=== PATIENT | female | born 1945 | race Caucasian/White ===

== ENCOUNTER 2022-03-24 10:43 | Emergency (ER) | payer MEDICARE, SELFPAY ==
[2022-03-24 11:06] VITALS: BP 144/79; PULSE 74; RESP 18; TEMP 36.6; O2SAT 99
--- NOTE | 2022-03-24 12:05 | ED.URI ---
HPI - URI/Sore Throat General Chief Complaint: Upper Respiratory Infection Stated Complaint: Cough/Sore Throat Time Seen by Provider: 03/24/22 12:05 Source: patient and RN notes reviewed Mode of arrival: ambulatory Limitations: no limitations History of Present Illness HPI Narrative: 76 of female presents concern for dry cough, sore throat, headache. Reports symptoms started Wednesday. Reports she recently trouble and potentially. She reports she took a negative COVID test at home. She reports was negative. She denies taking any nhwi-gax-tuuirex medications for her symptoms. She denies fever, body aches, chills, no sweats MD elicited complaint: cough Related Data Home Medications Medication Instructions Recorded Confirmed levothyroxine 50 mcg tablet 50 mcg DAILY 03/24/22 03/24/22 pravastatin 40 mg tablet 40 mg DAILY 03/24/22 03/24/22 Allergies Allergy/AdvReac Type Severity Reaction Status Date / Time No Known Allergies Allergy Verified 03/24/22 11:13 Review of Systems Review of Systems: CONSTITUTIONAL: Denies malaise, chills, sweats, or fever. EYES: Denies visual changes, redness, or discharge. ENT: Reports mild rhinorrhea, mild sore throat. Denies congestion, sinus pain, otalgia CARDIOVASCULAR: Denies chest pain, palpitations, or edema. RESPIRATORY: Reports cough. Denies dyspnea. GASTROINTESTINAL: Denies abdominal pain, nausea, vomiting, diarrhea SKIN: Denies rash or itching. MUSCULOSKELETAL: Denies myalgia. NEUROLOGIC: Reports headache. All systems reviewed & are unremarkable except as noted in HPI and below PMFSH Comments At time of signature, agree with nursing past medical, surgical, social and family history. There is no relevant family history pertinent to the presenting complaint Exam Narrative: GENERAL: Well-appearing, well-nourished, and in no acute distress. HEAD: Normocephalic EYES: PERRLA, conjunctivae clear ENT: Nares clear, turbinates edematous and erythematous, clear discharge. Mucous membranes moist. TM pearly burrell with sharp light reflex bilaterally; no tragal tenderness. Oropharynx not erythematous without lesions. Tonsils not enlarged and without exudate, no drooling, no hoarseness, no trismus, uvula midline. NECK: Supple. No lymphadenopathy CHEST: Clear to auscultation, breath sounds equal. No wheezing, rhonchi, rales, or stridor. No respiratory distress, speaks in full sentences. HEART: Regular rate and rhythm. No murmur heard. SKIN: Warm, dry, no rash. NEURO: Alert and oriented x3. PSYCH: Normal mood and affect Course Course Emergency Course: Patient is aware of diagnosis, understands and agrees to treatment plan. Anticipatory guidance given. Patient agrees to follow-up as directed and is aware of reasons to seek care at the emergency department. Portions of this record may have been created with voice recognition software Level of Care: Express Care Visit Vital Signs Vital signs: Vital Signs Temperature 97.8 F 03/24/22 11:06 Pulse Rate 74 03/24/22 11:06 Respiratory Rate 18 03/24/22 11:06 Blood Pressure 144/79 H 03/24/22 11:06 Pulse Oximetry 99 03/24/22 11:06 Oxygen Delivery Room Air 03/24/22 11:06 Temperature 97.8 F 03/24/22 11:06 Pulse Rate 74 03/24/22 11:06 Respiratory Rate 18 03/24/22 11:06 Blood Pressure 144/79 H 03/24/22 11:06 Pulse Oximetry 99 03/24/22 11:06 Oxygen Delivery Room Air 03/24/22 11:06 Reviewed. MDM - URI/Sore Throat MDM Narrative Medical decision making narrative: Differential diagnosis considered: Ravi virus, strep pharyngitis, allergic rhinitis, upper respiratory tract infection, sinusitis, rhinosinusitis, nasopharyngitis. viral pharyngitis, otitis media, otitis externa, pneumonia, bronchitis, viral cough syndrome, viral syndrome, and influenza. Exam findings show no acute concerns or changes; patient is non-toxic appearing and is in no distress. Patient is appropriate for outpatient treatment and follow-up
== END 2022-03-24 12:15 | disposition home or self-care (01) ==
PROVIDERS: Emergency Provider Nurse Practitioner; PCP Internal Medicine
DX: J06.9 Acute upper respiratory infection, unspecified (principal)
CPT/HCPCS: 99202; G0463

== ENCOUNTER 2024-11-11 10:02 | Emergency (ER) | payer MEDICARE, SELFPAY ==
--- NOTE | ~2024-11-11 | XR_ITS ---
HISTORY: pain with trauma COMPARISON: None TECHNIQUE: 3 views of the left ankle were performed FINDINGS: No acute displaced fracture or dislocation. Significant anterolateral soft tissue swelling is identified. The ankle mortise is preserved. Bone mineralization is age-appropriate. IMPRESSION: Anterolateral soft tissue swelling without acute displaced fracture. Reviewed, dictated and finalized at location A. IMPRESSION: Anterolateral soft tissue swelling without acute displaced fractur e.
--- OUTSIDE RECORDS SUMMARY | 2024-11-11 10:04 | XMS_ITS | Encounter Summary ---
Author Organization [facility] Address [address] [place] [address] Phone Care Team Providers Care Spreader Operator Name Role Phone Akira Reza MD Primary Care Provider [phone] Reason for Visit * Reason Comments Medication Refill Encounter Details Date Type Department Care Team (Late st Contact Info) Description 12/23/2023 Refill [facility] - Internal Medicine - [place] [address] [facility] [id number] Akira Reza MD [address] [place] [address] Medication Refill Social History Tobacco Use Types Packs/Day Years Used Date Smoking Tobacco: Former Cigarettes 0 05/10/1968 - 05/10/1978 Passive Smoke Exposure: Past Smokeless Tobacco: Never Alcohol Use Standard Drinks/Week Comments Yes 7 (1 standard drink = 0.6 oz pur e alcohol) [facility] Utilities Answer Date Recorded In the past 12 months has [employer], gas, oil, or water company threatened to shut off services in your home? Patient declined 05/17/2023 Social Connection and Isolation Panel Answer Date Recorded In a typical week, how many times do you talk on the phone with family, friends, or neighbors? Patient declined 05/17/2023 How often do you get togethe r with friends or relatives? Patient declined 05/17/2023 How often do you attend jew or cheondoism serv ices? Patient declined 05/17/2023 Do you belong to any clubs o r organizations such as jew groups, unions, fraternal or athletic groups, or school groups? Patient declined 05/17/2023 How often do you attend meet ings of the clubs or organizations you belong to? Patient declined 05/17/2023 Are you , , di vorced, , never , or living with a partner? Patient declined 05/17/2023 AUDIT-C Answer Date Recorded Q1: How often do you have a drink containing alc ohol? Patient declined 05/17/2023 Q2: How many drinks containi ng alcohol do you have on a typical day when you are drinking? Patient declined 05/17/2023 Q3: How often do you have si x or more drinks on one occasion? Patient declined 05/17/2023 Overall Financial Resource Strain (CARDIA) Answe r Date Recorded How hard is it for you to pa y for the very basics like food, housing, medical care, and heating? Patient declined 05/17/2023 PHQ-2 Answer Date Recorded Total Score - Questions 1-9 0 12/2023 [facility] - Occupational Stress Questionnaire Answer Date Recorded Do you feel stress - tense, restless, nervous, or anxious, or unable to sleep at night because your mind is troubled all the time - these days? Patient declined 05/17/2023 Exercise Vital Sign Answer Date Recorde d On average, how many days pe r week do you engage in moderate to strenuous exercise (like a brisk walk)? Patient declined On average, how many minutes do you engage in exercise at this level? Patient declined 05/17/2023 Hunger Vital Sign Answer Date Recorded Within the past 12 months, y ou worried that your food would run out before you got the money to buy more. Patient declined Within the past 12 months, t he food you bought just didn't last and you didn't have money to get more. Patient declined 12/2023 PRAPARE - Transportation Answer Date Re corded In the past 12 months, has l ack of transportation kept you from medical appointments or from getting medications? Patient declined 05/17/2023 In the past 12 months, has l ack of transportation kept you from meetings, work, or from getting things needed for daily living? Patient declined 05/17/2023 Housing Stability Vital Sign Answer Carlos e Recorded In the last 12 months, was t here a time when you were not able to pay the mortgage or rent on time? Patient declined 05/17/19 24 Number of Places Lived in the Last Year Not on f ile 05/17/2023 In the last 12 months, was t here a time when you did not have a steady place to sleep or slept in a penitentiary (including now)? Patient declined 05/17/2023 Sexually Active Control Partners Comments Not Currently Comments No Sex and Gender Information Value Date Recorded Sex Assigned at Not on file Legal Sex Female 7:34 PM CDT Gender Identity Not on file Sexual Orientation Not on file documented as of this encounter Plan of Treatment Upcoming Encounters Date Type Department Care Team (Late st Contact Info) Description 05/15/2025 11:40 AM FEATHER SAWYER Office Visit [facility] - Internal Medicine [facility] [address] [place] [address] Akira Reza MD [address] [place] [address] documented as of this encounter Visit Diagnoses Not on filedocumented in this encounter Additional Health Concerns Assessment Noted Time PHQ-9 Depression Total Score: 0 05/17/19 24 9:14 AM FEATHER SAWYER documented as of this encounter Care Teams Spreader Operator Relationship Specialty Start Date End Date Akira Reza MD [address] [place] [address] PCP - General Internal Medicine 05/09/15 documented as of this encounter
--- OUTSIDE RECORDS SUMMARY | 2024-11-11 10:04 | XMS_ITS | Encounter Summary ---
Author Organization [facility] Address [address] [place] [address] Phone Care Team Providers Care Otr Van Cdl Truck Driver Name Role Phone Akira Reza MD Primary Care Provider Reason for Visit * Reason Comments Medication Refill Encounter Details Date Type Department Care Team (Late st Contact Info) Description 03/12/2021 Refill [facility] - Internal Medicine - [place] [address] [facility] [place] [address] Akira Reza MD [address] [place] [address] Medication Refill Social History Tobacco Use Types Packs/Day Years Used Date Smoking Tobacco: Former Cigarettes 0 05/10/1968 - 05/10/1978 Smokeless Tobacco: Never Alcohol Use Standard Drinks/Week Comments Yes 7 (1 standard drink = 0.6 oz pur e alcohol) PHQ-2 Answer Date Recorded Total Score - Questions 1-9 0 12/2020 Sexually Active Control Partners Comments Not Currently Comments No Sex and Gender Information Value Date Recorded Sex Assigned at Not on file Legal Sex Female 7:34 PM CDT Gender Identity Not on file Sexual Orientation Not on file COVID-19 Exposure Response Date Recorded In the last month, have you been in contact with someone who was confirmed or suspected to have Coronavirus / COVID-19? No / Unsure 03/10/2021 1:40 PM CDT documented as of this encounter Miscellaneous Notes * Telephone Encounter - Manju Grace RN - 03/12/2021 7:52 AM CDT Medication failed the protocol, provider to review and approve the medication order if appropriate. Requested Prescriptions Pending Prescriptions Disp Refills levothyroxine (SYNTHROID) 50 MCG Tablet [Pharmacy Med Name: Levothyroxine Sodium 50 MCG Oral Tablet] 90 Tablet 3 Sig: TAKE 1 TABLET BY MOUTH DAILY Thyroid Hormones Protocol Failed - 03/12/2021 4:44 AM Failed - Normal TSH in past 12 months TSH Date Value Ref Range Status 11/14/2020 5.890 (H) 0.270 - 4.200 mIU/L Final Passed - Visit with relevant provider in past 12 months or upcoming 90 days Recent Visits Date Type Provider Dept 03/10/21 Office Visit Cassy Richard, PAC [facility] [place] 02/13/21 Office Visit Akira Reza MD [facility] 10/30/20 Office Visit Cassy Richard, [facility] [place] 10/15/20 Office Visit Akira Reza MD [facility] [place] 04/16/20 Office Visit Akira Reza MD [facility] Showing recent visits within past 365 days and meeting all other requirements Future Appointments Date Type Provider Dept 04/16/21 Appointment Akira Reza MD [facility] Showing future appointments within next 90 days and meeting all other requirements documented in this encounter Plan of Treatment Upcoming Encounters Date Type Department Care Team (Late st Contact Info) Description 05/15/2025 11:40 AM FLOWER PICKER Office Visit [facility] - Internal Medicine - [place] [address] [place] [phone] Akira Reza MD [address] [place] [address] documented as of this encounter Visit Diagnoses Not on filedocumented in this encounter Additional Health Concerns Assessment Noted Time PHQ-9 Depression Total Score: 0 10/16/19 21 8:00 AM CDT documented as of this encounter Care Teams Otr Van Cdl Truck Driver Relationship Specialty Start Date End Date Akira Reza MD [address] [place] [address] PCP - General Internal Medicine 05/09/15 documented as of this encounter
--- OUTSIDE RECORDS SUMMARY | 2024-11-11 10:04 | XMS_ITS | Continuity of Care Document ---
Author [place] [facility] [place] [address] [facility] [address] [place] [phone] Phone Care Team Providers Care Charger Operator Name Role Phone Maryam Hazel OD Unavailable Unavailable Allergies, Adverse Reactions, Alerts Substance Reaction Status Criticality No Known Allergies Active No Inform ation Medications Medication Instructions Dosage Effective Dates (start - stop) Status Comments latanoprost 0.005 % eye drops INSTILL 1 DROP IN EACH EYE EVERY DAY IN THE EVENING - Active Artificial Tears (PF) drops in a dropperette instill 1 drop by ophthalmic route every day 1 drop - Active Vitamin D3 2,000 unit capsule take 1 tablet by oral route every day 1 tablet - Active multivitamin capsule take 1 capsule by oral route every day - Active Vitamin B-12 1,000 mcg tablet take 1 capsule by oral route every day 1 capsule - Active aspirin 81 mg tablet,delayed release take 1 tablet by oral route every day 81 MG - Active Fish Oil 1,000 mg (120 mg-180 mg) capsule take 1 capsule by oral route every day 1 capsule - Active pravastatin 40 mg tablet take one tablet daily - Active Levoxyl 50 mcg tablet take one tablet daily - Active LATANOPROST 0.005% OPHTH SOLN 2.5ML INSTILL 1 DROP IN EACH EYE EVERY DAY IN THE EVENING - No Longer Active Procedures Procedure Date No Charge Optomap Fundus Photos Visual Field Examination(s) Eye Exam & Treatment SCODI, Posterior Segment No Charge Optomap Fundus Photos 024 Office/outpatient Visit, Est Post-op Follow-up Visit No Charge Optomap Fundus Photos 024 Trabeculoplasty By Laser SX Post-op Follow-up Visit Trabeculoplasty By Laser SX Office/outpatient Visit, Est Visual Field Examination(s) Fundus Photography W/ Report Office/outpatient Visit, Est Refraction Office/outpatient Visit, Est No Charge Optomap Fundus Photos 023 SCODI, Posterior Segment Eye Exam & Treatment Fundus Photography W/ Report Visual Field Examination(s) Office/outpatient Visit, Est Fundus Photography W/ Report Eye Exam & Treatment Visual Field Examination(s) SCODI, Posterior Segment No Charge Optomap Fundus Photos 022 Office/outpatient Visit, Est Fundus Photography W/ Report Eye Exam & Treatment Office/outpatient Visit, Est SCODI, Posterior Segment No Charge Optomap Fundus Photos 020 Office/outpatient Visit, Est Refraction Visual Field Examination(s) Eye Exam & Treatment Visual Field Examination(s) No Charge Optomap Fundus Photos 019 SCODI, Posterior Segment Office/outpatient Visit, Est Eye Exam & Treatment Visual Field Examination(s) Office/outpatient Visit, Est Office/outpatient Visit, Est No Charge Refraction Post-op Follow-up Visit No Charge Refraction Post-op Follow-up Visit After Cataract Laser Surgery After Cataract Laser Surgery No Charge Refraction SCODI, Posterior Segment Eye Exam & Treatment Visual Field Examination(s) Office/outpatient Visit, Est Office/outpatient Visit, Est Post-op Follow-up Visit Post-op Follow-up Visit No Charge Refraction Post-op Follow-up Visit Post-op Follow-up Visit Remove Cataract, Insert Lens Cyclophotocoag,endoscopic Post-op Follow-up Visit No Charge Refraction Post-op Follow-up Visit Post-op Follow-up Visit Remove Cataract, Insert Lens Cyclophotocoag,endoscopic No Charge Refraction Fundus Photography W/ Report Office/outpatient Visit, Est IOLMaster IOLMaster No Charge Refraction Visual Field Examination(s) Office/outpatient Visit, Est Office/outpatient Visit, Est SCODI, Posterior Segment Office/outpatient Visit, Est Visual Field Examination(s) Office/outpatient Visit, Est Optic Nerve Head Eval IPO Reduced 15% Office/outpatient Visit, Est Optic Nerve Head Eval IPO Reduced 15% Visual Field Examination(s) Eye Exam & Treatment Optic Nerve Head Eval IPO Reduced 15% Office/outpatient Visit, Est SCODI, Posterior Segment Office/outpatient Visit, Est Visual Field Examination(s) Office/outpatient Visit, Est Office/outpatient Visit, Est SCODI, Posterior Segment Office/outpatient Visit, Est Office/outpatient Visit, Est Visual Field Examination(s) Office/outpatient Visit, New Special Eye Evaluation Fundus Photography W/ Report Advance Directives Directive Yes / No Effective Date File Name Other Directive No N/A N/A WARNING:The information contained in this section is historical and is provided for information only and does not constitute a legal document or any assurance that the information is still accurate. Please verify the information with the phoenix of the legal document before using it for clinical purposes. Encounters Encounter Description Practice Location Reason(s) For Visit Diagnoses Date Provider Providers Copied on Encounter [facility] [employer] [facility], [address], [place], [place], [id number], tel:[phone] SEC [place] Professional dilated exam (chief complaint) Primary open-angle glaucoma, bilateral, moderate stagePresenc e of intraocular lensDry eye syndrome of bilateral lacrimal glands 5 Yasemin OD Maryam. [id number], [address], [place], [place], [address], [place]. tel:[phone] Referring Provider: Abhinav Brewer, [facility], [place], [address]. tel:[phone] [facility] [employer] [facility], [address], [place], [place], [address], [place] tel:[phone] [place] No Information 4 Yasemin OD Maryam. [id number], [address], [place], [place], [address], [place]. tel:[phone] Office/outpa tient Visit, Est [facility], [address], [place], [place], [address], tel:[phone] SEC Harpreet [place] Professional glaucoma, pressure check (chief complaint) Primary open-angle glaucoma, bilateral, moderate stagePresenc e of intraocular lensDry eye syndrome of bilateral lacrimal glands 4 Yasemin OD Maryam. [facility][note 2] [employer], [address], [place], [place], [address], [place]. tel:[phone] Referring Provider: Abhinav Brewer, [address] [employer] [facility], [place], [address]. tel:[phone] [employer] [facility], [facility], [facility][note 2] [facility] [address], [place], [place], [address], [place] [phone] SEC Harpreet CASTELLANOS Professional glaucoma, pressure check (chief complaint) Postoperativ e visit 4 Salvador OD Carrie. [address] [place], [place] [address] [facility], [address], [place], [place], [address], [place]. tel:[phone] Referring Provider: Abhinav Brewer, [address] [employer] [facility], [place], [address]. tel:[phone] [employer] [facility], [facility][note 2] [employer] [address], [place], [place], [address], [place] tel:[phone] SEC [place] Professional Laser procedure (chief complaint) Primary open-angle glaucoma, bilateral, moderate stage 4 Adrianne Walsh. [facility][note 2] [employer], [address], [place], [place], [address], [place]. tel:[phone] Referring Provider: Abhinav Brewer, [address] [employer] [facility], [place], [address]. tel:[phone] [employer] [facility], [facility][note 2] [employer] [address], [place], [place], [address], [place] tel:[phone] SEC Harpreet CASTELLANOS Professional 3-4 day IOP Check (chief complaint) Surgery follow-up examination 4 Yasemin OD Maryam. [facility][note 2] [employer], [address], [place], [place], [address], [place]. tel:[phone] Referring Provider: Abhinav Brewer, [address] [facility], [place], [address]. tel:[phone] Office/outpa tient Visit, [facility], [address] [place] [address] [address], [place], [place], [address], [place] tel:[phone] SEC Harprete CASTELLANOS Professional Pt here for SLT evaluation to help control IOP (chief complaint) Primary open-angle glaucoma, right eye, moderate stagePrimary open-angle glaucoma, unspecified eye, moderate stage Apr-3 0-202 4 Adrianne Nico. [address] [place] [address], [address], [place], [place], [address], [place]. tel:[phone] Referring Provider: Abhinav Brewer, [address] [facility], [place], [address]. tel:[phone] Office/outpa tient Visit, [facility], [address] [place] [address] [address], [place], [place], [address], [place] tel:[phone] SEC Harpreet CASTELLANOS Professional 6 MO IOP Check (chief complaint) Primary open-angle glaucoma, bilateral, moderate stage Mar-2 2-202 4 Yasemin OD Maryam. [address] [place] [address], [address], [place], [place], [address], [place]. tel:[phone] Referring Provider: Abhinav Brewer, [address] [facility], [place], [address]. tel:[phone] Office/outpa tient Visit, [facility], [address] [place] [address] [address], [place], [place], [address], [place] tel:[phone] SEC Harpreet CASTELLANOS Professional 1 Mo IOP Check (chief complaint) Primary open-angle glaucoma, bilateral, moderate stagePresenc e of intraocular lens Sep-0 6-202 3 Yasemin OD Maryam. [address] [place] [address], [address], [place], [place], [address], [place]. tel:[phone] Referring Provider: Abhinav Brewer, [address] [facility], [place], [address]. tel:[phone] [facility], [address] [facility], [address], [place], [place], [address], [place] tel:[phone] SEC [place] Professional Complete Exam (chief complaint) Primary open-angle glaucoma, bilateral, moderate stagePresenc e of intraocular lens 3 Yasemin OD Maryam. [address] [facility], [address], [place], [place], [address], [place]. tel:[phone] Referring Provider: Abhinav Brewer, [address] [facility], [place], [address]. tel:[phone] Office/outpa tient Visit, [facility], [address] [place] [address] [address], [place], [place], [address], [place] tel:[phone] [place] Professional glaucoma, pressure check (chief complaint) Primary open-angle glaucoma, bilateral, mild stagePresenc e of intraocular lensDry eye syndrome of bilateral lacrimal glands 3 Juan Manuel Benítez. [address] [employer], [address] [place], [address], [place]. tel:[phone] Referring Provider: Abhinav Brewer, [address] [facility], [place], [address]. tel:[phone] [facility], [address] [place] [address] [address], [place], [place], [address], [place] tel:[phone] SEC [place] Professional Complete Exam (chief complaint) Primary open-angle glaucoma, bilateral, mild stagePresenc e of intraocular lensDrusen (degenerativ e) of macula, left eye 2 Juan Manuel Benítez. [address] [facility], [address], [place], [place], [address], [place]. tel:[phone] Referring Provider: Abhinav Brewer, [address] [facility], [place], [address]. tel:[phone] Office/outpa tient Visit, [facility], [address] [place] [address] [address], [place], [place], [address], [place] tel:[phone] [place] Professional glaucoma, pressure check (chief complaint) Primary open-angle glaucoma, bilateral, mild stage 0- 2 Zambrano Jeyson. [address], [address], [place], [place], [address], [place]. tel:[phone] Referring Provider: Abhinav Brewer, [address] [facility], [place], [address]. tel:[phone] [place] [address], [address] [place] [address] [address], [place], [place], [address], [place] tel:[phone] SEC [place] Professional 3 month Complete (chief complaint) Primary open-angle glaucoma, bilateral, mild stagePresenc e of intraocular lensVitreous degeneration , right eye 1 Juan Manuel Benítez. [address], [address], [place], [place], [address], [place]. tel:[phone] Referring Provider: Abhinav Brewer, [address] [facility], [place], [address]. tel:[phone] Office/outpa tient Visit, [facility], [address] [place] [address] [address], [place], [place], [address], [place] tel:[phone] [place] Professional Red eye (chief complaint) Primary open-angle glaucoma, bilateral, mild stageSubconj unctival hemorrhage of left eye 1 Zambrano Jeyson. [address], [address], [place], [place], [address], [place]. tel:[phone] Referring Provider: Abhinav Brewer, [address] [facility], [place], [address]. tel:[phone] Office/outpa tient Visit, [facility], [address] [place] [address] [address], [place], [place], [address], [place] tel:[phone] SEC [facility] Professional 6 month IOP check (chief complaint) Primary open-angle glaucoma, bilateral, mild stage Bhupinder-3 0-202 0 Juan Manuel Benítez. [address] [facility], [address], [place], [place], [address], [place]. tel:[phone] Referring Provider: Abhinav Brewer, [address] [facility], [place], [address]. tel:[phone] [facility], [address] [place] [address] [address], [place], [place], [address], [place] tel:[phone] SEC [facility] Professional 6 mo Complete exam (chief complaint) Presence of intraocular lensPunctate keratitis, bilateralPri tong open-angle glaucoma, bilateral, mild stage Dec-1 3-201 9 Juan Manuel Benítez. [address] [facility], [address], [place], [place], [address], [place]. tel:[phone] Referring Provider: Abhinav Brewer, [address] [facility], [place], [address]. tel:[phone] Office/outpa tient Visit, [facility], [address] [place] [address] [address], [place], [place], [address], [place] tel:[phone] SEC [facility] Professional 6 mo IOP check (chief complaint) Primary open-angle glaucoma, bilateral, mild stage Bhupinder-0 7-201 9 Juan Manuel Benítez. [address] [facility], [address], [place], [place], [address], [place]. tel:[phone] Referring Provider: Abhinav Brewer, [address] [facility], [place], [address]. tel:[phone] [facility], [address] [place] [address] [address], [place], [place], [address], [place] [phone] SEC [facility] Professional No Information 9 Juan Manuel Benítez. [address] [facility], [address], [place], [place], [address], [place]. tel:[phone] [facility], [address] [place] [address] [address], [place], [place], [address], [place] [phone] SEC [facility] Professional Complete Exam (chief complaint) Primary open-angle glaucoma, bilateral, moderate stagePunctat e keratitis, bilateralPre sence of intraocular lens Apr- 8 Juan Manuel Benítez. [address] [facility], [address] [place], [place], [address], [place]. tel:[phone] Referring Provider: Abhinav Brewer, [address] [place], [address]. tel:[phone] Office/outpa tient Visit, [facility], [address] [place] [address] [address], [place], [place], [address], [place] tel:[phone] SEC [facility] Professional glaucoma, pressure check (chief complaint) Primary open-angle glaucoma, bilateral, moderate stage 8 Juan Manuel Benítez. [address] [facility], [address], [place], [place], [address], [place]. tel:[phone] Referring Provider: Abhinav Brewer, [address] [place], [address]. tel:[phone] Office/outpa tient Visit, [facility], [address] [place] [address] [address], [place], [place], [address], [place] [phone] SEC [facility] Professional Floating dark spot (chief complaint) Other vitreous opacities, right eyePresence of intraocular lens 7 Maria De Jesus Arora. [address] [facility], [address], [place], [place], [address], [place]. tel:[phone] Referring Provider: Abhinav Brewer, [address] [facility], [place], [address]. tel:[phone] [facility], [address], [place], [place], [address], [place] tel:[phone] SEC Harp[place] CASTELLANOS Professional 2 wk YAG PC PO (chief complaint) Encntr for f/u exam aft trtmt for cond oth than malig neoplm 7 Juan Manuel Benítez. [address] [facility], [facility] A, [place], [place], [address], [place]. tel:[phone] Referring Provider: Abhinav Brewer, [address] [facility], [place], [address]. tel:[phone] [facility], [address], [place], [place], [address], [place] tel:[phone] SEC Har[place]reet CASTELLANOS Professional Laser procedure (chief complaint) Encntr for f/u exam aft trtmt for cond oth than malig neoplmOther secondary cataract, right eye 7 Juan Manuel Benítez. [address] [facility], [facility] A, [place], [place], [address], [place]. tel:[phone] Referring Provider: Abhinav Brewer, [address] [facility], [place], [address]. tel:[phone] [facility], [address], [place], [place], [address], [place] tel:[phone] SEC Harpreet CASTELLANOS Professional 6 month IOP check (chief complaint) Primary open-angle glaucoma, left eye, moderate stagePrimary open-angle glaucoma, right eye, moderate stageAfter-c ataract with vision obscured of both eyesPresence of intraocular lens Oct-3 7 Juan Manuel Benítez. [address], [address], [place], [place], [address], [place]. tel:[phone] Referring Provider: Abhinav Brewer, [address] [facility], [place], [address]. tel:[phone] Office/outpa tient Visit, [facility], [address] [place] [address] [address], [place], [place], [address], [place] tel:[phone] SEC Harpreet CASTELLANOS Professional Complete Exam (chief complaint) Primary open-angle glaucoma, right eye, moderate stagePrimary open-angle glaucoma, left eye, moderate stagePresenc e of intraocular lens Apr-2 7 Wankum James. [address], [address], [place], [place], [address], [place]. tel:[phone] Referring Provider: Abhinav Brewer, [address] [facility], [place], [address]. tel:[phone] [facility], [address] [place] [address] [address], [place], [place], [address], [place] tel:[phone] SEC Harpreet CASTELLANOS Professional No Information Apr-0 7 Wankum James. [address], [address], [place], [place], [address], [place]. tel:[phone] Office/outpa tient Visit, [facility], [address], [place], [place], [address], [place] tel:[phone] SEC Harpreet CASTELLANOS Professional 3 month IOP check OU (chief complaint) No Information Oct-2 6 Wankum James. [address], [address] [place], [place], [address], [place]. tel:[phone] Referring Provider: Abhinav Brewer, [address] [facility] [place], [address]. tel:[phone] [facility], [address], [place], [place], [address], [place] tel:[phone] SEC Harpreet CASTELLANOS Professional 2 week IOP PO IOL w/ ECP OD (chief complaint) No Information 6 Juan Manuel Benítez. [address] [employer], [address], [place], [place], [address], [place]. tel:[phone] Referring Provider: Abhinav Brewer, [address] [facility], [place], [address]. tel:[phone] [facility], [address] [place] [address] [address], [place], [place], [address], [place] [phone] SEC Harpreet CASTELLANOS Professional 1 week IOP check OD (chief complaint) No Information 6 Juan Manuel Benítez. [address] [employer], [address] [place], [place], [address], [place]. tel:[phone] Referring Provider: Abhinav Brewer, [address] [facility], [place], [address]. tel:[phone] [facility], [address] [place] [address] [address], [place], [place], [address], [place] [phone] SEC Harpreet CASTELLANOS Professional 2 week post op (chief complaint) No Information 6 Juan Manuel Benítez. [address] [employer], [address], [place], [place], [address], [place]. tel:[phone] Referring Provider: Abhinav Brewer, [address] [facility], [place], [address]. tel:[phone] [facility], [address] [place] [address] [address], [place], [place], [address], [place] tel:[phone] [place] Professional 1 day post op (chief complaint) No Information Bhupinder-0 1-201 6 Gio Ramirez. [address] [facility], [address], [place], [place], [address], [place]. tel:[phone] Referring Provider: Abhinav Brewer, [address] [facility], [place], [address]. tel:[phone] [facility], [address] [place] [address] [address], [place], [place], [address], [place] tel:[phone] [facility] No Information - 6 Adrianne Walsh. [address] [facility], [address], [address], [place], [place], [address], [place]. tel:[phone] Referring Provider: Abhinav Brewer, [address] [facility], [place], [address]. tel:[phone] [facility], [address], [place], [place], [address], [place] tel:[phone] SEC Harpreet CASTELLANOS Professional post op with IOP check (chief complaint) No Information - 6 Juan Manuel Benítez. [address] [facility], [address], [place], [place], [address], [place]. tel:[phone] Referring Provider: Abhinav Brewer, [address] [facility], [place], [address]. tel:[phone] [facility], [address], [place], [place], [address], [place] tel:[phone] SEC Harpreet CASTELLANOS Professional F/u exam, postop (chief complaint) No Information September-0 6-201 6 Juan Manuel Benítez. [address] [facility], [address], [place], [place], [address], [place]. tel:[phone] Referring Provider: Abhinav Brewer, [address] [facility], [place], [address]. tel:[phone] [facility], [address] [place] [address] [address], [place], [place], [address], [place] tel:[phone] SEC Harpreet CASTELLANOS Professional F/u exam, postop (chief complaint) No Information 6 Juan Manuel Benítez. [address] [facility], [address], [place], [place], [address], [place]. tel:[phone] Referring Provider: Abhinav Brewer, [address] [email or web address] [facility] Center, [place], [address]. tel:[phone] [facility], [address] [place] [address] [address], [place], [place], [id number], [place] tel:[phone] [facility] No Information 6 Adrianne Walsh. [address] [place] [address] [employer], [address], [place], [place], [id number], [place]. tel:[phone] Referring Provider: Abhinav Brewer, [address] [place] [facility] [email or web address] [facility], [place], [address]. tel:[phone] Office/outpa tient Visit, [facility], [address] [place] [address] [address], [place], [place], [id number], [place] tel:[phone] SEC Harpreet CASTELLANOS Professional cataract evaluation (chief complaint) No Information 6 Adrianne Walsh. [facility] [place][note 2] [address] [employer], [address], [place], [place], [id number], [place]. tel:[phone] Referring Provider: Abhinav Brewer, [address] [place] [facility], [place], [address]. tel:[phone] Office/outpa tient Visit, [facility], [address] [place] [address] [address], [place], [place], [address], [place] tel:[phone] SEC Harpreet CASTELLANOS Professional Glaucoma (chief complaint) No Information - 5 Wankum James. [address], [address], [id number], [place]. tel:[phone] Referring Provider: Abhinav Brewer, [address] [facility], [place], [address]. tel:[phone] Office/outpa tient Visit, [facility], [address] [place] [address] [address], [place], [place], [address], [place] tel:[phone] [facility] Professional 6 month IOP check (chief complaint) No Information - 5 Wankum James. [address], [place], [place], [address], [place]. tel:[phone] Referring Provider: Abhinav Brewer, [address] [facility], [place], [address]. tel:[phone] Office/outpa tient Visit, [facility], [address] [place] [address] [address], [place], [place], [id number], [place] tel:[phone] SEC [facility] Professional Glaucoma, pressure check (chief complaint) No Information 3- 4 Wankum James. [address], [address] [place], [address], [place]. tel:[phone] Referring Provider: Abhinav Brewer, [address] [facility], [place], [address]. tel:[phone] Office/outpa tient Visit, [facility], [address] [address], [place], [place], [id number], [place] tel:[phone] [facility] Professional 6 MO IOP CHECK / DFE / OCT (chief complaint) No Information Sep-0 4-201 4 Wankum James. [address], [address] [place], [address], [place]. tel:[phone] Referring Provider: Abhinav Brewer, [address] [facility], [place], [address]. tel:[phone] Office/outpa tient Visit, [facility], [address] [address], [place], [place], [address], [place] tel:[phone] [facility] Professional No Information 4 Wankum James. [address] [facility], [address], [address], [place]. tel:[phone] Referring Provider: Abhinav Brewer, [address] [facility], [place], [address]. tel:[phone] [facility], [address] [facility], [address], [place], [place], [address], [place] tel:[phone] SEC [facility] Professional No Information 3 Wankum James. [address] [facility], [address], [address], [place]. tel:[phone] Referring Provider: Abhinav Brewer, [address] [facility], [place], [address]. tel:[phone] Office/outpa tient Visit, [facility], [address] [place] [address] [address], [place], [place], [address], [place] tel:[phone] [facility] Professional No Information 2 Wankum James. [address] [facility], [address] [place], [address], [place]. tel:[phone] Referring Provider: Abhinav Brewer, [address] [facility], [place], [address]. tel:[phone] Office/outpa tient Visit, [facility], [address] [place] [address] [address], [place], [place], [address], [place] tel:[phone] SEC [facility] Professional No Information 2 Wankum James. [address] [facility], [address] [place], [address], [place]. tel:[phone] Referring Provider: Abhinav Brewer, [address] [facility], [place], [address]. tel:[phone] Office/outpa tient Visit, [facility], [address] [address], [place], [place], [address], [place] tel:[phone] [facility] Professional No Information 2 Wankum James. [address] [facility], [facility] [place], [address], [place]. tel:[phone] Referring Provider: Abhniav Brewer, [address] [facility], [place], [address]. tel:[phone] Office/outpa tient Visit, [facility], [address] [address], [place], [place], [address], [place] [phone] [facility] Professional No Information 1 Wankum James. [address] [facility], [facility] [place], [address], [place]. tel:[phone] Referring Provider: Abhinav Brewer, [address] [facility], [place], [address]. tel:[phone] [facility], [address] [address], [place], [place], [address], [place] tel:[phone] [facility] Professional No Information Sep-0 1 Wankum James. [address] [facility], [facility] [place], [address], [place]. tel:[phone] Referring Provider: Abhinav Brewer, [address] [facility], [place], [address]. tel:[phone] Office/outpa tient Visit, [facility], [address] [address], [place], [place], [address], [place] tel:[phone] [facility] Professional No Information 1 Wankum James. [address], [address] [place], [address], [place]. tel:[phone] Referring Provider: Abhinav Brewer, [address] [facility], [place], [address]. tel:[phone] Office/outpa tient Visit, [facility], [address] [address], [place], [place], [address], [place] tel:[phone] [facility] Professional No Information 1 Wankum James. [address], [address] [place], [address], [place]. tel:[phone] Referring Provider: Abhinav Brewer, [address] [facility], [place], [address]. tel:[phone] Office/outpa tient Visit, [facility], [address], [place], [place], [address], [place] tel:[phone] [facility] Professional No Information 1 Wankum James. [address], [address] [place], [address], [place]. tel:[phone] Referring Provider: Abhinav Brewer, [address] [facility], [place], [address]. tel:[phone] Family History Family Member Type Diagnosis Age At Onset Mother Problem (finding) diabetes melli tus in first degree relative Payers Payer name Insurance type Covered constitution party ID Authoriza tion(alma [employer] Md[employer] Gold Adv Prime CI [id number] Social History Type Description Quantity Date Captured Comments Alcohol Use Details 2 drinks daily Caffeine Use Details No Tobacco Use Status Ex-cigarette smoker 025 Smoking Status Former smoker Smoking Tobacco Use Details Cigarette: Age Stopped: 32 Cigarette: No Details Available Sex Female Chief Complaint And Reason For Visit From encounter dated '10/05/2024 13:00'. dilated exam (chief complaint). Description: The 78 year old patient presents for evaluation of dilated exam in the right eye and left eye. H/o POAG OU and PCIOL s/p YAG PC OU. Pt compliant with Latanoprost qhs OU and AFTs PRN OU. Pt states vision is stable since last visit. Denies pain/pressure. Denies flashes/intermittent stable floaters. Pt defers refraction, doing well with glasses. Reason For Referral Reason For Referral No Information Plan Of Treatment Date Type Action Status Goal Tobacco cessation counseling completed Goal Tobacco cessation counseling completed Goal Tobacco cessation counseling completed Goal Tobacco cessation counseling completed Goal Tobacco cessation counseling completed Goal Tobacco cessation counseling completed Goal Tobacco cessation counseling completed Goal Tobacco cessation counseling completed Appointment Roya Villarreal BOOKED Patient Education Dry Eyes: Care Instruct ions completed Patient Education Open-Angle Glaucoma: Ca re Instructions completed Patient Education Open-Angle Glaucoma: Ca re Instructions completed Patient Education Open-Angle Glaucoma: Ca re Instructions completed Patient Education Open-Angle Glaucoma: Ca re Instructions completed Patient Education Open-Angle Glaucoma: Ca re Instructions completed Patient Education Open-Angle Glaucoma: Ca re Instructions completed Patient Education Open-Angle Glaucoma: Ca re Instructions completed Patient Education Open-Angle Glaucoma: Ca re Instructions completed Patient Education Subconjunctival Hemorrh age: Care Inst~ completed Patient Education Open-Angle Glaucoma: Ca re Instructions completed Patient Education Open-Angle Glaucoma: Ca re Instructions completed Patient Education Open-Angle Glaucoma: Ca re Instructions completed Patient Education Open-Angle Glaucoma: Ca re Instructions completed History Of Present Illness Encounter Date Complaint History Of Prese nt Illness dilated exam The 78 year old patient presents for evaluation of dilated exam in the right eye and left eye. H/o POAG OU and PCIOL s/p YAG PC OU. Pt compliant with Latanoprost qhs OU and AFTs PRN OU. Pt states vision is stable since last visit. Denies pain/pressure. Denies flashes/intermittent stable floaters. Pt defers refraction, doing well with glasses. glaucoma, pressure check The 78 year old patient presents for a 3 month POAG ou IOP check. S/p SLT OD. Patient is using drop as directed. Patient denies any changes in vision ou. Patient states her eyes feel dry. glaucoma, pressure check The 78 year old patient presents for a 1 week IOP check S/p SLT OS. Patient denies and pain or discomfort. Patient used Latanoprost last night ou. Laser procedure The 78 year old patient presents for a SLT OS per Dr. Hazel. S/p SLT OD in August. Patient stopped her Latanoprost OS 3 days ago. Patient is using it in OD. 3-4 day IOP Check The 77 year ol d patient presents for evaluation of 3-4 day IOP Check in the right eye and left eye. Pt had SLT OD on 09/07/2023. Pt states things seem to be doing really well OD and has not had any complaints. Pt here for SLT eval uation to help control IOP The 77 year old patient presents for evaluation of Pt here for SLT evaluation to help control IOP in the right eye and left eye. Pt states she was not told to stop the Latanoprost drops. 6 MO IOP Check The 77 year old patient presents for evaluation of 6 MO IOP Check in the right eye and left eye. Pt states no changes in vision since last visit. Pt take Latanoprost QHS OU. 1 Mo IOP Check The 77 year old patient presents for evaluation of 1 Mo IOP Check in the right eye and left eye. Pt states vision has been the same since last visit. Pt is taking latanoprost QHS OU. Pt is also taking Refresh at lease BID or more if needed. Complete Exam The 76 year old patient presents for evaluation of Complete Exam in the right eye and left eye. Monitoring POAG. Pt states sees black floaters randomly throughout the day in OU. Pt states using Artificial tears at least TID. Pt. states no pain or discomfort in either eye. glaucoma, pressure check The 76 year old patient presents for a 6 month POAG ou IOP check. Patient is pseudo ou with ECP and yag caps ou. Patient doesn't use any glaucoma drops. Patient uses AT bid-tid ou. Patient denies any changes in vision ou. Complete Exam The 75 year old patient presents for a complete POAG ou IOP check. Patient is pseudo ou with ECP and yag caps ou. Patient is not using any glaucoma drops. Patient c/o her eyes are dry and uses AT. Patient states she missed the dry eye seminar last week she didn't see it until 20 minutes before it started. glaucoma, pressure check The 75 year old female presents for a 6 month POAG ou IOP check. Patient is pseudo ou with ECP and yag caps ou. Patient uses AT prn. Patient denies any changes in vision ou. 3 month Complete The 74 year old female presents for evaluation of 3 month Complete in the right eye and left eye. Hx of PCIOL w/ECP OU, YAG PC OU< SPK OU, and POAG OU. Patient denies any changes with her VA. Patient using OTC dry eye gtt prn OU. Unable to due OCT ON due to RI here Red eye The 74 year old female presents for evaluation of Red eye in the left eye. Hx PCIOL w/ECP, YAG PC OU, SPK OU, and POAG OU. Pt reports she uses AFT BID-TID OU. Pt reports OS is red and bloody looking since yesterday morning. Pt denies any pain or irritation today, OU. 6 month IOP check The 73 year ol d female presents for evaluation of 6 month IOP check in the right eye and left eye. Hx of PCIOL w/ECP OU, YAG PC OU, VESTA OU, SPK OU, and POAG OU. Patient denies any problems or changes with VA. Patient using an art tear prn OU for her dry eyes. 6 mo Complete exam The 73 year o ld female presents for evaluation of 6 mo Complete exam with VF 24-2 in the right eye and left eye. Hx of PCIOL w/ECP OU, YAG PC OU, VESTA OU, and POAG OU. Pt reports she uses AFT BID OU. Pt denies any changes in VA, OU, since last appt. Pt reports she uses AFT BID OU. Pt reports her lens in her gls, OS, is smudged, she would like to get new ones, is aware of MRX fee, and signed ABN. 6 mo IOP check The 72 year old female presents for evaluation of 6 mo IOP check with VF 24-2, OCT-ON, and Optomap in the right eye and left eye. Pt reports she hasn't noticed any changes in VA, OU, since last appt. Pt reports she is using AFT BID-TID OU and no pain, irritation or discomfort today, OU. Complete Exam The 72 year old female presents for evaluation of Complete Exam in the right eye and left eye. Hx of POAG OU, PCIOL w/ECP OU, and VESTA OU. Pt denies any changes in VA, OU, since last appt. Pt reports she doesn't use any gtts and no pain, irritation or discomfort today, OU. glaucoma, pressure check The 71 year old female presents for a 6 month POAG ou IOP check. Patient is pseudo ou with ECP and yag caps ou. Patient doesn't use any drops. Patient denies any changes in vision ou. Floating dark spot The 71 year o ld female presents for Floating dark spot in the right eye. Hx of PCIOL w/ECP OU, YAG PC OU (OD 03-26-17), VESTA and POAG OU. Pt reports she doesn't use any gtts OU. Pt reports no pain or irritation OU. Pt reports she has been noticing floating dark spot, OD, constant, since Wednesday, sometimes more noticeable than other times. Pt reports yesterday it looked like a big R", but today it is not as big. Pt denies any flashes of light, OU. Pt reports it she still seems to see good, OU. 2 wk YAG PC PO The 71 year old female presents for 2 wk YAG PC PO in the right eye. Hx of PCIOL w/ECP OU, YAG PC OU, VESTA OU and POAG OU. Pt reports she can see a lot better since YAG PC OD. 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 Pt reports she had just a couple of mild floaters, OD, immediately after YAG PC, but they are gone now. Pt denies any flashes of lights. Pt reports she doesn't use any gtts and no pain, irritation or discomfort today, OU. Laser procedure The 71 year old female presents for a YAG PC OD and a 3 week post op yag pc OS. Patient states vision OS is better. Patient c/o has difficulty reading small print and hard to see road signs. 6 month IOP check The 71 year ol d female presents for 6 month complete exam with IOP check in the right eye and left eye. Hx PCIOL wECP OU, Glaucoma OU, Dry eye. PT states her vision is doing ok but sincer hasr last exam she has to use a magnifying glass to read small print. Pt states she has trouble seeing road signs, and doing close work. Pt denies using gtts. Complete Exam The 70 year old female presents for Complete POAG ou IOP check. Patient has hx of pseudo ou with ecp. Patient doesn't use any drops. Patient denies any changes in vision ou. Patient just got new glasses. 3 month IOP check OU The 70 year old female presents for 3 month IOP check OU. Patient has hx of POAG OU, PCIOL w/ ECP OU. She does not use any gtt. Patient states that she is due to return to her OD for new glasses. Patient has no other complaints OU. 2 week IOP PO IOL w/ ECP OD The 69 year old female presents for evaluation of 2 week IOP PO IOL w/ ECP OD. PT has hx of PCIOL w/ ECP OU. Pt not currently using any gtt. She states that she has not used any drops since her last OV. Pt states near VA is still blurry OU. Pt denies pain, irritation or discomfort OU. 1 week IOP check OD The 69 year old female presents for a 1 week IOP check OD. Pt is s/p PCIOL c ECP OD (09/28/15.) Pt denies any pain or discomfort. Pt states v/a OU is stable. Pt is using Combigan QD OD, forgot to use last night. 2 week post op The 69 year old female presents for 2 week post op after CE with ECP OD. Hx of CE with ECP OS, POAG OU. Pt does not use Latanoprost any longer. Pt using Pred BID OD. Pt lost Diclofenac and hasn't used since yesterday morning. Pt reports no problems with vision and vision in OD is very good. Pt is using old glasses for distance and near and pt states vision is great. 1 day post op The 69 year old female presents for evaluation of 1 day post op Phaco PCIOL with ECP OD. Pt states VA OD is better. Reviewed Post op instructions and medications. Pt currenlty using Combigan BID OS, Pt has not used Latanaprost since 10-03. Pt has no complaints OU post op with IOP check The 69 ye ar old female presents for 3 week post op with IOP check after Phaco w/IOL and ECP OS. Pt is scheduled for CE + ECP OD October 07. Pt c/o distance and near vision in the right eye and problems with glare. Pt is currently using Combigan BID OS and Latanoprost QHS OD. F/u exam, postop The 69 year old female presents for a 2 week post op CE with ECP OS. Patient is using Diclofenac and Pred as directed. Patient states OS is doing good. Patient wishes to proceed with CE OD because of blurry vision and glare. F/u exam, postop The 69 year old female presents for a 1 day post op CE with ECP OS. Patient to begin Pred and Poly qid OS and Diclofenac tid OS. Patient c/o OS feels like its scratched. cataract evaluation The 69 year old female presents for evaluation of cataract evaluation. Pt. is having difficulty with distnace, near, and driving at night/ glare. Pt. states that vision is stable/ maybe slightly decreased from her last visit back in April [address] Powers. Pt denies any pain or discomfort at this time. Pt. is taking Latanaprost QD OU. Glaucoma The 69 year old female presents for a 6 month POAG ou IOP check with a VF. Patient uses Latanoprost qhs ou. Patient c/o glare at night, blurry vision and harder to see street signs. 6 month IOP check The 68 year ol d female presents for 6 month IOP check. Patient c/o small v/a changes OU. Patient says her v/a is worse for distance OU. Patient denies any pain or discomfort at this time. Patient using Latanoprost QHS OU. Glaucoma, pressure check Patient presents for a 4 month IOP check with a VF. Patient uses Latanoprost qhs ou. Patient states will be going to see Dr. Angel berrios. 6 MO IOP CHECK / DFE / OCT The [age] year old female presents for evaluation of 6 MO IOP CHECK / DFE / OCT OU. Patient uses Latanoprost Q36HR OU. Patient reports vision seems stable, no pain or discomfort. Functional Status Date Functional Assessmen t No Information Instructions Date Instruction Additional Infor aris Impression/Plan Impression/Plan Impression/Plan Impression/Plan Impression/Plan Impression/Plan Related to Prima ry open-angle glaucoma, right eye, moderate stage Impression/Plan Impression/Plan Impression/Plan Impression/Plan Impression/Plan Impression/Plan Impression/Plan Impression/Plan Impression/Plan Impression/Plan Impression/Plan Impression/Plan Impression/Plan Educational material given Relat ed to Primary open-angle glaucoma, bilateral, moderate stage Impression/Plan - Di scussed signs and symptoms of PVD/floaters. Discussed signs and symptoms of retinal detachment.Return if having increased light flashes or floaters, otherwise return for annual exam. Presence of intraocu lar lens - Educational material given Related to Presence of intraocular lens Return for complete exam in 6 months for IOP check + 24-2 HVF, sooner if problems Related to Encntr for f/u exam aft trtmt for cond oth than malig neoplm Encntr for f/u exam aft trtmt for cond oth than malig neoplm - Post op instructions reviewed and understood by patient Related to Encntr for f/u exam aft trtmt for cond oth than malig neoplm Follow up - Return f or complete exam in 6 months for IOP check + 24-2 HVF, sooner if problems Related to Encntr for f/u exam aft trtmt for cond oth than malig neoplm Impression/Plan - 2 Week Yag PC Post-Op OD- Patient states vision is greatly improved post YAG PC- Vision and IOP stable OU- OU healed well POAG OU- Vision and IOP Stable without drops- History of ECP OU- Discussed overall health of eyes- Continue to monitor without treatment at this time- Return for complete exam in 6 months for IOP check + 24-2 HVF, sooner if problems Related to Encntr for f/u exam aft trtmt for cond oth than malig neoplm RTC 2 weeks for YAG PC OD, sooner if problems. Related to Encntr for f/u exam aft trtmt for cond oth than malig neoplm Follow up - RTC 2 we eks for YAG PC OD, sooner if problems. Related to Encntr for f/u exam aft trtmt for cond oth than malig neoplm Impression/Plan - 2 Week Yag PC Post-Op OS- Patient states vision is greatly improved post YAG PC- Vision and IOP stable- OS healed well Posterior Capsular Opacification OD:- PCO accounts for patient's visual complaints.- Diagnosis discussed in detail. - Yag Laser treatment, R/B/A discussed with patient.- Advised patient to call with new onset of floaters, flashes of light or a veil covering part of the vision.- Patient elects to proceed with Yag Laser Capsulotomy OD today.- Consent was obtained.- RTC 2 weeks for YAG PC PO OD Related to Encntr for f/u exam aft trtmt for cond oth than malig neoplm Primary open-angle g laucoma, left eye, moderate stage - Educational material provided Related to Primary open-angle glaucoma, left eye, moderate stage Follow up - 2-4 week s for post op OS, and Yag PC OD Impression/Plan - PO AG OU: - IOP well controlled without drops after ECP- Continue without drops at this time- No change OCT ONPseudophakia OU:- IOL's in good position, pco OUPCO OU: - PCO accounts for patients visual complaints- Diagnosis discussed in detail- Yag treatment, R/B/A discussed with patient- Advised patient to call with new onset floaters, flashes of light or a veil covering part of the vision- Patient elects to proceed with Yag Caps OS today- Consent was obtained- Patient to return in 2-4 weeks for Yag PC PO OS and Yag PC OD Primary open-angle g laucoma, right eye, moderate stage - Educational material provided Related to Primary open-angle glaucoma, right eye, moderate stage Follow up - Return i n 6 months with for IOP check , OCT (ON). Impression/Plan - Di scussed diagnosis in detail with patient. IOP well controlled without glaucoma drops after ECP OU. Will proceed without glaucoma treatment at this time. No change in visual fernandes OU. IOL's in good position, pcf ou. Treatment not needed at this time will continue to monitor. No signs of AMD OU. Return to clinic in 6 months for IOP check with OCT ON or sooner with any problems. Primary open-angle g laucoma, right eye, moderate stage - Educational material provided Related to Primary open-angle glaucoma, right eye, moderate stage Follow up - Return i n 6 months with James Powers M.D. for Complete Exam , IOP check. Impression/Plan - IO P well controlled without medication after ECP OU. Will proceed without glaucoma treatment at this time and will continue to monitor. Patient understands she is still considered a glaucoma patient and will need to be monitored closely. Return to clinic in 6 months for complete exam with IOP check or sooner with any problems. Follow up - 3 month complete + OCT ON with GAW Impression/Plan - Di agnosis discussed with patient. The eye pressure in both eyes is within normal limits today. Recommend patient remain off all drops at this time. Informed patient we will continue to monitor the IOP closely and diagnostic testing for changes. Discussed if the IOP gets any higher we may need to restart the Latanoprost. Recommend patient return in 3 months or sooner with problems. Impression/Plan - 1 month s/p CE IOL+ECP OD. Patient last used Simbrinza about 36 hours ago. IOP has improved. Instructed patient to remain off all drops at this time. Recommend she return in 2 weeks for IOP check or sooner with problems. Follow up - Return t o clinic in 2 weeks for IOP check Impression/Plan - 2 week s/p IOL+ECP OD. Patient healing well. IOL in good position. IOP OD is elevated in the office today. Combigan was instilled several times and the IOP was reduced to 23mmHg before leaving the office. Patient given Combigan sample to use BID OD until she returns. PO Medication instillation reviewed with patient in detail. Recommend patient return in 1 week for IOP check or sooner with problems. Follow up - 1 week PO / IOP chec k Follow up - as scheduled Impression/Plan - 1 day post op Phaco with PCIOL and ECP OD, discussed post op instructions and medication use. Proceed without glaucoma drops at this time. Refilled Poly. Return to clinic as scheduled or sooner with any problems. Follow up - Proceed with OD CE + ECP on October 07 Impression/Plan - 3 week s/p IOL + ECP OS. IOP is normal today. Instructed patient to continue the Combigan BID OS. Explained we will most likely discontinue the Combigan OS at her one day PO s/p CE + ECP OD. Patient will continue the Latanoprost QHS OD until 3 days before OD CE. Patient will continue her PO drops as directed and will proceed with OD CE on October 07. Impression/Plan - 2 week s/p IOL OS. Patient healing well. IOL in good position. IOP in the left eye was elevated today and brought down with Combigan to 17 mmHg OS before leaving the office today. Patient given a sample of Combigan to use BID OS. Medication instillation reviewed with patient in detail. Patient will return in 1 week or sooner with problems. Follow up - 1 week IOP check OU Follow up - Return t o clinic as scheduled Impression/Plan - On e Day Post Op s/p Phaco with IOL OS and ECP. IOL in good position. Patient healing well. Medication instillation, shield use and restrictions reviewed with patient. Discussed the weight limit on lifting in detail. Instructed patient to stay off the Latanoprost in the left eye at this time, and continue Latanoprost QHS OD. Return to clinic as scheduled or sooner with problems. Nuclear sclerotic ca taract of both eyes - Surgery advised; risks, benefits, alternatives discussed. Related to Nuclear sclerotic cataract of both eyes Follow up - sched ce os 1st with ecp Impression/Plan - Di scussed dx with pt, treatment options discussed. Pt understands r-a-b of this procedure and elects to schedule. ECP discussed to decrease gtt dependence/IOP control. Pt understands this procedure is elective and can proceed when desired. Specs after CE understood. DC Latanoprost in the operated eye 3 days prior to surgery Impression/Plan - In traocular pressure well controlled, tolerating medications. Will continue with same regimen. Latanoprost QD OU. No refills needed at this time. No change in visual fernandes. Cataracts account for the patients complaints. Discussed all risks, benefits, procedures and recovery. Patient understands changing glasses will not improve vision. Patient desires to have surgery, will schedule cataract evaluation. Follow up - schedule cataract evaluation PRIM OPEN ANGLE GLAU COMA - Educational material given Related to PRIM OPEN ANGLE GLAUCOMA - RTC in 6 months fo r an IOP check and VF. Related to See list of assessments above - IOP stable, well c ontrolled. No change to optic nerve. Continue using current medication. Cataract diagnosis discussed in detail with pt. No treatment for cataracts currently recommended. The patient will monitor vision changes and contact us with any decrease in vision. RTC in 6 months for an IOP check and VF. Related to See list of assessments above - Return in 6 months with James Powers M.D. for IOP check Related to See list of assessments above - Intraocular pressu re well controlled, tolerating medications. Will continue with same regimen. No change in visual field. Return in 6 months or sooner with any problems. Related to See list of assessments above - RTC in 4 months wi th IOP check and VF Related to See list of assessments above - IOP slightly eleva tasia today. Will continue to monitor. Continue same gtts. RTC in 4 months with IOP check and VF. Educational materials provided:about today's exam. Related to See list of assessments above - RTC in 6 months for OCT and di late Related to See impression: general plan General plan -PRIM O PEN ANGLE GLAUCOMA -Moderate Stage Glaucoma -SENILE NUCLEAR CATARACT -TEAR FILM INSUFFIC NOS - IOP stable, well controlled. VF reviewed - No changes. Discussed dry eyes and the use of ATs and a humidifier for relief. RTC in 6 months for OCT and dilate. Rx for Latanoprost provided to pt today. Educational materials provided:about today's exam. Related to See impression: general plan well controlled poag - same rx with yrs refill Related to Primary Open-Angle Glaucoma - Return in 6 months with James Powers M.D. 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
--- OUTSIDE RECORDS SUMMARY | 2024-11-11 10:04 | XMS_ITS | Encounter Summary ---
Author Organization [facility] Address [address] [place] [address] Phone Care Team Providers Care Golf [employer] Weighter Name Role Phone Akira Reza MD Primary Care Provider [phone] Reason for Visit * Reason Comments Medication Refill Encounter Details Date Type Department Care Team (Late st Contact Info) Description 09/02/2020 Refill [facility] - Internal Medicine - [place] [address] [facility] [place] [address] Akira Reza MD [address] [facility] [place] [address] Medication Refill Social History Tobacco Use Types Packs/Day Years Used Date Smoking Tobacco: Former Cigarettes 0 05/10/1968 - 05/10/1978 Smokeless Tobacco: Never Alcohol Use Standard Drinks/Week Comments Yes 7 (1 standard drink = 0.6 oz pur e alcohol) PHQ-2 Answer Date Recorded Total Score - Questions 1-9 0 12/2019 Comments No Sex and Gender Information Value Date Recorded Sex Assigned at Not on file Legal Sex Female 7:34 PM CDT Gender Identity Not on file Sexual Orientation Not on file documented as of this encounter Miscellaneous Notes * Telephone Encounter - Manju Grace RN - 09/02/2020 10:41 AM CDT Please review and sign. documented in this encounter Plan of Treatment Upcoming Encounters Date Type Department Care Team (Late st Contact Info) Description 05/15/2025 11:40 AM FEATHERER Office Visit [facility] - Internal Medicine [place] [address] [place] [address] Akira Reza MD [address] [place] [address] documented as of this encounter Visit Diagnoses Not on filedocumented in this encounter Additional Health Concerns Assessment Noted Time PHQ-9 Depression Total Score: 0 04/16/20 20 3:00 PM FEATHERER documented as of this encounter Care Teams [employer] Weighter Relationship Specialty Start Date End Date Akira Reza MD [address] [place] [address] PCP - General Internal Medicine 05/09/15 documented as of this encounter
--- OUTSIDE RECORDS SUMMARY | 2024-11-11 10:04 | XMS_ITS | Clinical Summary ---
Author Organization [facility] [place] [address] Address [facility] [place] [address] Care Team Providers Care Mailroom Assistant Name Role Phone Akira Reza MD Primary Care Provider [phone] Paras Alcocer MD Unavailable Allergies No known active allergies Medications pravastatin (PRAVACHOL) 40 mg tablet TAKE 1 TABLET BY MOUTH NIGHTLY 1 Active levothyroxine (SYNTHROID) 75 mcg tablet Take 1 tablet (75 mcg total) by mouth early childhood education instructor before breakfast 1 Active multivitamin tablet Take by mouth Active CYANOCOBALAMIN-COB AMAMIDE SL Take by mouth Activ e cholecalciferol (cholecalciferol) 400 unit capsule Take by mouth Active latanoprost (XALATAN) 0.005 % ophthalmic solution 1 drop nightly Active aspirin 325 mg enteric coated tabletIndications: Deep Vein Thrombosis Prevention Take 1 tablet (325 mg total) by mouth daily 42 tablet 11 4 Active ascorbic acid (VITAMIN C) 500 mg tablet,chewableInd ications:Vitamin deficiency prevention Take 1 tablet/chew tab (500 mg total) by mouth daily 30 tablet/chew tab 4 Active celecoxib (CeleBREX) 200 mg capsuleIndications :Pain Take 1 capsule (200 mg total) by mouth 2 (two) times a day 84 capsule 4 Active HYDROcodone-acetam inophen (NORCO) 5-325 mg per tabletIndications: Pain Take 1-2 tablets by mouth every 4 (four) hours as needed for pain 40 tablet 4 Active ondansetron ODT (ZOFRAN-ODT) 4 mg disintegrating tabletIndications: nausea and vomiting Take 1 tablet (4 mg total) by mouth every 6 (six) hours as needed for nausea or vomiting 20 tablet 2 4 Active senna-docusate (PERICOLACE) 8.6-50 mgIndications:cons tipation Take 2 tablets by mouth 2 (two) times a day 60 tablet 2 4 Active Active Problems Problem Noted Date Diagnosed Date Aftercare following left hip joint replacement s urgery 10/28/2023 Personal history of colonic polyps 02/24/2022 Overview (02/24/2022): Added automatically from request for surgery [id number] Encounter for screening colonoscopy 02/24/2022 Overview (02/24/2022): Added automatically from request for surgery [id number] Resolved Problems Problem Noted Date Diagnosed Date Resolved Date Primary osteoarthritis of left hip 08/09/2023 10/28/2023 Primary localized osteoarthritis of left hip 4 10/28/2023 Surgical History Surgery Date Site/Laterality Comments CYST REMOVAL Ovarian Cyst Removal COLONOSCOPY 02/07/2017 - 03/09/2017 TONSILLECTOMY Medical History Medical History Date Comments Hx Other Medical ovarian cyst re moval Rheumatoid arthritis (HCC) Rheum atoid arthritis Anemia Anemia Osteoarthritis Osteoarthritis Hypercholesteremia Thyroid disease Hypothyroidism Family History Medical History Relation Name Comments Diabetes Other 1 Family history of Diabetes mellitus; Heart disease Other 2 Family history of Heart disease; Hypertension Other 3 Family history of Hypertension; Relation Name Status Comments Other 1 Other 2 Other 3 Social History Tobacco Use Types Packs/Day Years Used Date Smoking Tobacco: Former Smokeless Tobacco: Never Tobacco Cessation:Counseling Given: Not Answered AUDIT-C Answer Date Recorded Q1: How often do you have a drink containing alcohol? 4 or more times a week 08/18/2023 Q2: How many drinks containi ng alcohol do you have on a typical day when you are drinking? 1 or 2 Q3: How often do you have si x or more drinks on one occasion? Never 08/18/2023 PHQ-2 Answer Date Recorded PHQ-2 Total Score (If total score is 3 or more points, staff should administer the PHQ-9) 0 08/18/2023 Personal Safety Answer Date Recorded Have you ever been in or are you currently in a harmful physical or emotional relationship or is someone making you feel afraid or unsafe? Denies 08/18/2023 Comments Unknown Sex and Gender Information Value Date Recorded Sex Assigned at Not on file Legal Sex Female 3:31 PM STOCK CUTTER Gender Identity Not on file Sexual Orientation Not on file Obstetrics History Last Filed Vital Signs Vital Sign Reading Time Taken Comments Blood Pressure 131/93 10/29/2023 1:08 PM CDT Pulse 76 10/29/2023 1:08 PM CDT Temperature 37.8 C (100.1 F) 08/19/2023 7:47 AM CDT Respiratory Rate 17 08/19/2023 7:47 AM CDT Oxygen Saturation 98% 08/19/2023 7:47 AM CDT Inhaled Oxygen Concentration - - Weight 61.7 kg (136 lb) 10/29/2023 1:08 PM CDT Height 149.9 cm (4' 11) 10/29/2023 1:08 PM CDT Body Mass Index 27.47 10/29/2023 1:08 PM CDT Plan of Treatment Health Maintenance Due Date Last Done Comments Hepatitis C Screening 1945 Hepatitis B Screening 12/02/1965 Zoster Vaccine (1 of 2) 12/02/1997 Well Visit 65+ 12/02/2012 Pneumococcal vaccine 65+ (3 of 3 - PCV20 or PCV21) 11/04/2020 11/05/2015, 11/23/2012, 11/23/2012 Osteoporosis Screening-Bone Density Scan 10/31/2022 10/31/2020, 10/31/2020 Covid-19 Vaccine (3 - 2023-2 5 season) 2024 08/02/2020, 07/05/2020 DTaP/Tdap/Td Vaccine (2 - Td or Tdap) 01/24/2024 01/23/2014 Depression Screening 08/08/2024 08/09/2023 Fall Risk Assessment 08/18/2024 08/19/2023 Influenza Vaccine (#1) 2025 , 02/03/2020, 02/16/2019, Additional history exists Breast Cancer Screening-Mammogram Discontinued 04/15/2022, 04/15/2022, 03/05/2021, Additional history exists Colon Cancer Screening-CT Colonography Discontinued 04/24/2022, 03/01/2017 Colon Cancer Screening-Colonoscopy Discontinued 04/24/2022, 03/01/2017 Colon Cancer Screening-DNA Stool Discontinued 04/24/20, 03/01/2017 Colon Cancer Screening-FIT Discontinued 04/24/2022, Colon Cancer Screening-FOBT Discontinued 04/24/2022, 1 Colon Cancer Screening-Sigmoidoscopy Discontinued 04/24/2022, 03/01/2017 Colorectal Cancer Screening Discontinued Medical Devices Implanted Type Area Manager Zone Device Identifier Shelf Expiration Date Model / Serial / Lot [employer] Arroyo 48mm 32mm Hip Neutral Liner Acetabular Altrx Sterile Latex Free [id number] - [id number] Implanted:Qty: 1 on 08/18/2023 by Paras Alcocer MD at [facility] Left: Hip [employer] [id number] 10/07/2026 [id number] / / [id number] [employer] Arroyo 48mm Sector Hip Shell Acetabular Gription Sterile Latex Free [id number] - [id number] Implanted:Qty: 1 on 08/18/2023 by Paras Alcocer MD at [facility] Left: Hip [employer] [id number] 09/06/2032 [id number] / / [id number] [employer] Arroyo 6.5mm 25mm Acetabular Cancellous Screw Bone Sterile 1217-25-500 - [id number] Implanted:Qty: 1 on 08/18/2023 by Paras Alcocer MD at [facility] Left: Hip [employer] [id number] 03/08/2033 1217-25-500 / / [id number] [employer] Actis Collared Hip 04/22 4 Standard Offset Stem Femoral [id number] - [id number] Implanted:Qty: 1 on 08/18/2023 by Paras Alcocer MD at [facility] Left: Hip [employer] [id number] 07/07/2033 [id number] / / [employer] Articul/King 32mm Hip +1mm 04/22 Taper Head Femoral Biolox Delta Latex Free [id number] - [id number] Implanted:Qty: 1 on 08/18/2023 by Paras Alcocer MD at [facility] Left: Hip [employer] [id number] 01/08/2028 [id number] / / [id number] Procedures Procedure Name Priority Date/Time Associated Diagnosis Comments COLONOSCOPY 04/24/2022 7:17 AM STOCK CUTTER from Last 3 Months or Most Recently Relevant to Health Maintenance Results * COLONOSCOPY (04/24/2022 7:17 AM STOCK CUTTER) Anatomical Region Laterality Modality Other Narrative Procedure Note Marquise Vee MD - 04/24/2022 7:17 AM CST [place] Patient Name: Roya Villarreal Procedure Date: 04/24/2022 7:17 AM Date of : 1945 Admit Type: Outpatient Age: 76 Gender: Female Attending MD: Marquise Vee M.D. Room: [facility] ROOM 2 Note Status: Finalized Patient Profile: Refer to note in patient chart for documentation of history and physical. Procedure: Colonoscopy Indications: High risk colon cancer surveillance: Personalhistory of colonic polyps, Last colonoscopy: February 2017 Referring MD: Akira Reza M.D. Providers: Marquise Vee M.D. Impression: - Hemorrhoids found on perianal exam. - The entire examined colon is normal. - No specimens collected. Recommendation: - Discharge patient to home. - Resume previous diet. - Continue present medications. - Repeat colonoscopy in 5 years for surveillance. - Return to primary care physician as previously scheduled. Medicines: Propofol per Anesthesia Complications: No immediate complications. Estimated Blood Loss: Estimated blood loss: none. Procedure: Pre-Anesthesia Assessment: - This assessment was completed [Time ofAssessment] prior to the administration of sedation. The benefits, risks and alternatives of theprocedure and sedation were discussed and informed consentwas obtained. All questions were answered. Please referto the signed informed consent document in the medical record. The scope was passed under direct vision.The Colonoscope [id number] was introducedthrough the anus and advanced to the the cecum, identifiedby appendiceal orifice and ileocecal valve. The bowel preparation used was Miralax and bisacodyl tabletsvia single dose instruction. The colonoscopy wasperformed without difficulty. The patient tolerated the procedure well. The quality of the bowelpreparation was excellent. The ileocecal valve, appendiceal orifice, and rectum were photographed. Findings: Hemorrhoids were found on perianal exam. The colon (entire examined portion) appeared normal. Electronically signed by Marquise Vee M.D. Marquise Vee M.D. 04/24/2022 8:03:30 AM Number of Addenda: 0 Note Initiated On: 04/24/2022 7:17 AM Procedure Code(s): --- Professional --- G0105, Colorectal cancer screening; colonoscopy on individual at high risk Diagnosis Code(s): --- Professional --- K64.9, Unspecified hemorrhoids Z86.010, Personal history of colonic polyps CPT copyright 2020 [employer]. All rights reserved. The codes documented in this report are preliminary and upon psychological operations reviewmay be revised to meet current compliance requirements. Recognized by the [place] [employer] for promoting quality in endoscopy Marquise Vee MD ENDOSCOPY PROCEDURES Final Re sult from Last 3 Months or Most Recently Relevant to Health Maintenance Insurance [employer] MEDICARE ADVANTAGE COUNTS INCLUDE 234 BEDS AT THE [facility] Advance Directives For more information, please contact: [phone] * Full Code (Latest Code Status on File) Date Activated Date Inactivated Comments 08/18/2023 5:06 PM 08/19/2023 5:00 PM * Full Code Date Activated Date Inactivated Comments 04/24/2022 7:03 AM 04/24/2022 12:56 PM Care Teams Mailroom Assistant Relationship Specialty Start Date End Date Akira Reza MD [address] [place] [address] PCP - General 02/05/11 Paras Alcocer MD [address] [place] [address] [address] [facility] [place] [address] Surgeon Orthopedic Surgery 08/19/23
--- OUTSIDE RECORDS SUMMARY | 2024-11-11 10:04 | XMS_ITS | Referral Summary ---
Author Organization [facility] [address] Address [facility] [place] [address] Care Team Providers Care Laboratory Mechanic Helper Name Role Phone Akira Reza MD Primary Care Provider [phone] Paras Alcocer MD Unavailable [phone] Allergies No known active allergies Medications pravastatin (PRAVACHOL) 40 mg tablet TAKE 1 TABLET BY MOUTH NIGHTLY 1 Active levothyroxine (SYNTHROID) 75 mcg tablet Take 1 tablet (75 mcg total) by mouth early intervention school psychologist before breakfast 1 Active multivitamin tablet Take [...] (02/24/2022): Added automatically from request for surgery [id number] Encounter for screening colonoscopy 02/24/2022 Overview (02/24/2022): Added automatically from request for surgery [id number] Resolved Problems Problem Noted Date Diagnosed Date Resolved Date Primary osteoarthritis of left hip 08/09/2023 10/28/2023 Primary localized osteoarthritis of left hip 4 10/28/2023 Social History Tobacco Use Types Packs/Day Years [...] on file Legal Sex Female 3:31 PM BUTT PRESSER Gender Identity Not on file Sexual Orientation Not on file Last Filed Vital Signs Vital Sign Reading [...] 10/29/2023 1:08 PM CDT Plan of Treatment Not on file Medical Devices Implanted Type Area Lock Assembler Device Identifier Shelf Expiration Date Model / Serial / Lot [employer] [place] 48mm 32mm Hip Neutral Liner Acetabular Altrx Sterile Latex Free [id number] - [id number] Implanted:Qty: 1 on 08/18/2023 by Paras Alcocer MD at [facility] Left: Hip [employer] [id number] 10/07/2026 [id number] / / [id number] [employer] [place] 48mm Sector Hip Shell Acetabular Gription Sterile Latex Free [id number] - [id number] Implanted:Qty: 1 on 08/18/2023 by Paras Alcocer MD at [facility] Left: Hip [employer] [id number] 09/06/2032 [id number] / / [id number] [employer] [place] 6.5mm 25mm Acetabular Cancellous Screw Bone Sterile 1217-25-500 - [id number] Implanted:Qty: 1 on 08/18/2023 by Paras Alcocer MD at [facility] Left: Hip [employer] [id number] 03/08/2033 1217-25-500 / / [id number] [employer] Actis Collared Hip 04/22 4 Standard Offset Stem Femoral [id number] - [id number] Implanted:Qty: 1 on 08/18/2023 by Paras Alcocer MD at [facility] Left: Hip [employer] [id number] 07/07/2033 [id number] / / [employer] Articul/King 32mm Hip +1mm 04/22 [place] Head Femoral Biolox Delta Latex Free [id number] - [id number] Implanted:Qty: 1 on 08/18/2023 by Paras Alcocer MD at [facility] Left: Hip [employer] [id number] 01/08/2028 [id number] / / [id number] Procedures Procedure Name Priority Date/Time Associated Diagnosis Comments COLONOSCOPY 04/24/2022 7:17 AM BUTT PRESSER from Last 3 Months or Most Recently Relevant to Health Maintenance Results * COLONOSCOPY (04/24/2022 7:17 AM BUTT PRESSER) Anatomical Region Laterality Modality Other Narrative Procedure Note Marquise Vee MD - 04/24/2022 7:17 AM CST [facility] Patient Name: Roya Villarreal Procedure Date: 04/24/2022 7:17 AM Date of : 1945 Admit Type: Outpatient Age: 76 Gender: Female Attending MD: Marquise Vee M.D. Room: [facility] ENDOSCOPY ROOM 2 Note Status: Finalized Patient [...] scope was passed under direct vision.The Colonoscope [id number] was introducedthrough the anus and advanced to [...] history of colonic polyps CPT copyright 2020 [employer]. All rights reserved. The codes documented in this report are preliminary and upon solar sales consultant reviewmay be revised to meet current compliance requirements. Recognized by the [employer] for promoting quality in endoscopy Marquise Vee MD ENDOSCOPY PROCEDURES Final Re sult from Last 3 Months or Most Recently Relevant to Health Maintenance Insurance UHC MEDICARE ADVANTAGE AETNA MEDICARE Advance Directives For more information, please contact: [phone] * Full Code (Latest Code Status on File) Date Activated Date Inactivated Comments 08/18/2023 5:06 PM 08/19/2023 5:00 PM * Full Code Date Activated Date Inactivated Comments 04/24/2022 7:03 AM 04/24/2022 12:56 PM Care Teams Laboratory Mechanic Helper Relationship Specialty Start Date End Date Akira Reza MD [address] [place] [address] PCP - General 02/05/11 Paras Alcocer MD [address] [place] [address] DR [address] [facility] [place] [address] Surgeon Orthopedic Surgery 08/19/23
--- OUTSIDE RECORDS SUMMARY | 2024-11-11 10:04 | XMS_ITS | Clinical Summary ---
Author Organization [facility] Address [address] [place] [address] Phone Care Team Providers Care Snow Removal Supervisor Name Role Phone Akira Reza MD Primary Care Provider [phone] Medications fish oil-omega-3 fatty acids 1000 MG Capsule Take 1,000 mg by mouth daily. Active Cholecalciferol (VITAMIN D-3 PO) Take by mouth. Active Cyanocobalamin (VITAMIN B 12 PO) Take by mouth. Active aspirin EC 81 MG Tablet Delayed Response Take 81 mg by mouth daily. Active Multiple Vitamin (MULTI-VITAMIN PO) Take by mouth. Active latanoprost (XALATAN) 0.005 % Solution INSTILL 1 DROP IN EACH EYE EVERY DAY IN THE EVENING 3 Active meloxicam (MOBIC) 7.5 MG Tablet Take 1 Tablet by mouth daily. 14 Tablet 3 5 Active pravastatin (PRAVACHOL) 40 MG Tablet Take 1 Tablet by mouth nightly. 90 Tablet 3 5 Active levothyroxine (SYNTHROID) 75 MCG Tablet Take 1 Tablet by mouth daily. 90 Tablet 1 5 Active ezetimibe (ZETIA) 10 MG Tablet Take 1 Tablet by mouth daily. 90 Tablet 4 11/03/19 25 Discontinu ed(Med List Clean Up) Active Problems Problem Noted Date Diagnosed Date Primary osteoarthritis of left hip 07/29/2023 Other hyperlipidemia 04/16/2021 Primary osteoarthritis of left knee 02/13/2021 Other specified hypothyroidism 04/16/2020 Glaucoma 01/11/2014 Encounters Date Type Department Care Team Description 11/02/2024 3:00 PM CDT Office Visit [facility] - [place] [address] [place] [address] Akira Reza MD Other specified hypothyroidism (Primary Dx); Other hyperlipidemia Discharge Disposition: Discharged to home or Selfcare 11/02/2024 Travel from Last 3 Months Immunizations Immunization Administration Dates Next Due Covid-19, Mrna, Lnp-s, Pf, 3 0 Mcg/0.3 Ml Dose (CooCoo) 08/02/2020,07/05/2020 Influenza Vaccine 02/16/2019 Influenza Vaccine greater than 3 yrs 03/07/2024 Influenza Vaccine, Quadrivalent, PF 02/13/2021 Influenza, High-dose, Quadrivalent 02/03/2020 Influenza, Quadrivalent, Adjuvanted 01/26/2023 Influenza, Trivalent, Adjuvanted, PF 02/22/2018 Influenza, high-dose, trivalent, PF 02/03/2020,0 05/11/2016,03/12/2014 Pneumococcal Vaccine - 13 Valent 11/05/2015,11/07 Pneumococcal Vaccine Adult - 23 Valent 3 TDAP Vaccine 01/23/2014 Family History Medical History Relation Name Comments Hypertension Father Stroke Mother Breast Cancer Other MCOUSIN No Known Problems Sister Relation Name Status Comments Father Mother Alive Other MCOUSIN Sister Alive Social History Tobacco Use Types Packs/Day Years Used Date Smoking Tobacco: Former Cigarettes 0 05/10/1968 - 05/10/1978 Passive Smoke Exposure: Past Smokeless Tobacco: Never Tobacco Cessation:Counseling Given: No Alcohol Use Standard Drinks/Week Comments Yes 7 (1 standard drink = 0.6 oz pur e alcohol) [facility] Utilities Answer Date Recorded In the past 12 months has [employer], gas, oil, or water [employer] threatened to shut off services in your home? Patient declined 05/17/2023 Social Connection and Isolation Panel Answer Date Recorded In a typical week, how many times do you talk on the phone with family, friends, or neighbors? Patient declined 05/17/2023 How often do you get togethe r with friends or relatives? Patient declined 05/17/2023 How often do you attend temple or episcopalian serv ices? Patient declined 05/17/2023 Do you belong to any clubs o r organizations such as temple groups, unions, fraternal or athletic groups, or [...] Recorded Total Score - Questions 1-9 0 03/0 08/2024 [facility] - Occupational Stress [...] place to sleep or slept in a half-way (including now)? Patient declined 05/17/2023 Sexually Active Control Partners Comments Not Currently Comments No Sex and Gender Information Value Date Recorded Sex Assigned at Not on file Legal Sex Female 7:34 PM CDT Gender Identity Not on file Sexual Orientation Not on file Last Filed Vital Signs Vital Sign Reading Time Taken Comments Blood Pressure 140/78 11/02/2024 2:57 PM CDT Pulse 78 11/02/2024 2:57 PM CDT Temperature 36.7 C (98 F) 11/02/2024 2:57 PM CDT Respiratory Rate 12 03/10/2021 1:46 PM CDT Oxygen Saturation 97% 11/02/2024 2:57 PM CDT Inhaled Oxygen Concentration - - Weight 62.6 kg (138 lb) 11/02/2024 2:57 PM CDT Height 149.9 cm (4' 11) 11/02/2024 2:57 PM CDT Body Mass Index 27.87 11/02/2024 2:57 PM CDT Plan of Treatment Upcoming Encounters Date Type Department Care Team (Late st Contact Info) Description 05/15/2025 11:40 AM EARLY CHILDHOOD TEACHER ASSISTANT Office Visit [facility] - [place] [address] [place] [place] [address] Akira Reza MD [address] [place] [address] Health Maintenance Due Date Last Done Comments Hepatitis C Virus (HCV) Screening 1945 DEXA Bone Density 10/31/2022 10/31/2020 Td Immunization Every 10 Years (Adults With 1 Tdap) 01/24/2024 01/23/2014 SARS-COV-2 Immunization ( season) 2024 03/07/2024, 04/15/2023, 02/20/2022, Additional history exists Influenza Immunization (#1) 01/08/202502/08, 01/26/2023, 02/20/2022, Additional history exists DTaP/Tdap/Td Immunization Discontinued 01/23/2014 Pneumococcal Immunization (50+ years) Discontinued 11/05/2015, 11/23/2012, 11/23/2012 Pneumococcal Immunization Combined Discontinued 11/05/2015, 11/23/2012, 11/23/2012 Zoster Immunization Completed 02/20/2021, Mammogram Discontinued 04/15/2022, 02/08, 02/01/2020, Additional history exists Colonoscopy Discontinued 04/24/2022, 04/09, 04/24/2022, Additional history exists Colorectal Cancer Screening Discontinued Respiratory Syncytial Virus (RSV) Immunization (Adult) Completed 04/12/2024 Cologuard Discontinued Hepatitis B Immunization Aged Out No longer eligible based on patient's age to complete this topic Human Papillomavirus (HPV) Immunization Aged Out No longer eligible based on patient's age to complete this topic Immunochemical Fecal Occult Blood Discontinued Meningococcal Immunization (ACWY) Aged Out No longer eligible based on patient's age to complete this topic Rotavirus Immunization Aged Out No lo nger eligible based on patient's age to complete this topic Procedures Procedure Name Priority Date/Time Associated Diagnosis Comments COLONOSCOPY 04/24/2022 12:00 AM EARLY CHILDHOOD TEACHER ASSISTANT HUMBLE SCREENING BILATERAL DIGITAL W CAD W JOSSELYN Routine 04/15/2022 8:42 AM EARLY CHILDHOOD TEACHER ASSISTANT Encounter for screening mammogram for malignant neoplasm of breast [facility] BONE DENSITOMETRY AXIAL SKELETON Routine 10/31/2020 9:52 AM CDT Asymptomatic menopausal state from Last 3 Months or Most Recently Relevant to Health Maintenance Results * COLONOSCOPY (04/24/2022 12:00 AM EARLY CHILDHOOD TEACHER ASSISTANT) 04/24/2022 us Provider Scan PROCEDURE/MINOR SURGICAL ORDERAB LES Final Result SCAN * HUMBLE SCREENING BILATERAL DIGITAL W CAD W JOSSELYN (04/15/2022 8:42 AM EARLY CHILDHOOD TEACHER ASSISTANT) Anatomical Region Laterality Modality breast Bilateral Mammography 04/15/2022 8:12 AM EARLY CHILDHOOD TEACHER ASSISTANT Narrative 04/15/2022 3:54 PM EARLY CHILDHOOD TEACHER ASSISTANT - HUMBLE SCREENING BILATERAL DIGITAL W CAD W JOSSELYN BILATERAL DIGITAL SCREENING MAMMOGRAM 3D/2D WITH CAD WITH MEDIOLATERAL OBLIQUE CRANIOCAUDAL: 04/15/2022 The study was acquired using digital technology and interpreted from soft copy. Current study was also evaluated with FABPulous version 7.2. 2D digital mammographic views, as well as 3D digital tomosynthesis were performed in the CC and MLO projections. CLINICAL: Routine screening. Patient has no complaints. No personal history of cancer. Maternal cousin had breast cancer. COMPARISONS: Comparison is made to exams dated: 03/05/2021, 02/01/2020, and 11/22/2018 [facility]. BREAST TISSUE:The tissue of both breasts is heterogeneously dense. This may lower the sensitivity of mammography. FINDINGS: There are benign vascular calcifications in both breasts. No significant masses, calcifications, or other findings are seen in either breast. There has been no significant interval change. IMPRESSION: BI-RAD 2 BENIGN There is no mammographic evidence of malignancy. A 1 year screening mammogram is recommended. A letter will be sent to the patient with these results. The patient will be entered into a reminder system with a target due date of 1 year for her next screening exam. Electronically signed by: Issac shafer/kenyatta:04/15/2022 13:54:12 City Bailiff(s): RT Tomas(R)(M), [facility] letter sent: Normal Exam Reading location: [facility] BI-RADS: 2 Benign Procedure Note Issac Espino MD - 04/15/2022 - HUMBLE SCREENING BILATERAL DIGITAL W CAD W JOSSELYN BILATERAL DIGITAL SCREENING MAMMOGRAM 3D/2D WITH CAD WITH MEDIOLATERAL OBLIQUE CRANIOCAUDAL: 04/15/2022 The study was acquired using digital technology and interpreted from soft copy. Current study was also evaluated with ICAD version 7.2. 2D digital mammographic views, as well as 3D digital tomosynthesis were performed in the CC and MLO projections. CLINICAL: Routine screening. Patient has no complaints. No personal history of cancer. Maternal cousin had breast cancer. COMPARISONS: Comparison is made to exams dated: 03/05/2021, 02/01/2020, and 11/22/2018 [facility]. BREAST TISSUE:The tissue of both breasts is heterogeneously dense. This may lower the sensitivity of mammography. FINDINGS: There are benign vascular calcifications in both breasts. No significant masses, calcifications, or other findings are seen in either breast. There has been no significant interval change. IMPRESSION: BI-RAD 2 BENIGN There is no mammographic evidence of malignancy. A 1 year screening mammogram is recommended. A letter will be sent to the patient with these results. The patient will be entered into a reminder system with a target due date of 1 year for her next screening exam. Electronically signed by: Issac Espino M.D. ll/penrad:04/15/2022 13:54:12 City Bailiff(s): [place] Tomas(R)(M), [facility] letter sent: Normal Exam Reading location: [facility] BI-RADS: 2 Benign us Akira Reza MD IMG MAMMO ORDERABLES Final Result * HUMBLE BONE DENSITOMETRY AXIAL SKELETON (10/31/2020 9:52 AM CDT) Anatomical Region Laterality Modality BODY N/A Other 10/31/2020 10:5 9 AM CDT Impressions 10/31/2020 11:02 AM CDT IMPRESSION: Low bone mass. Fracture risk assessment (FRAX): 10 year risk for a major osteoporotic fracture is 12.0 % 10 year risk for a hip fracture is 2.2 % The FRAX tool has not been validated in patients currently or previously treated with pharmacotherapy for osteoporosis. In such patients, clinical judgement must be exercised in interpreting FRAX scores as the fracture risk may be overestimated. REFERENCE: Bone mineral density: Normal (T-score above or = -1.0) Low bone mass (T-score between -1.0 and -2.5) replaces the previously used term osteopenia Osteoporosis (T-score = or below -2.5) Medical evaluation for secondary causes of low bone mineral density may be appropriate. FRAX is a World Health Organization validated fracture risk assessment tool that calculates a person's 10 year probability of a major osteoporosis related fracture and hip fracture. According to the National Osteoporosis Foundation guidelines, postmenopausal women and men age 50 or older with low bone mass and a 10 year probability of a major osteoporosis related fracture = or greater than 20% or a 10 year probability of a hip fracture = or greater than 3% should be considered for treatment. For further information, including treatment recommendations, please refer to the 2013 ISCD Official Positions (http://www.iscd.org) and the NOF's Clinician's Guide to Prevention and Treatment of Osteoporosis (http://www.nof.org/professionals/clinical-guidelines) Narrative 10/31/2020 11:02 AM CDT EXAM DESCRIPTION: HUMBLE BONE DENSITOMETRY AXIAL SKELETON REASON FOR STUDY: 74 y/o year old F with given history of screening. 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 COMPARISON: None available. FINDINGS: AP LUMBAR SPINE L1-L4: Total BMD is 1.045 g/cm2 T-score is -1.2 LEFT FOREARM: Total BMD is 0.866 g/cm2 T-score is -0.2 LEFT HIP: Total BMD is 0.939 g/cm2 T-score is -0.5 Femoral neck BMD is 0.872 g/cm2 T-score is -1.2 THIS IS AN ELECTRONICALLY VERIFIED FINAL REPORT 10/31/2020 10:59 AM - Electronically signed by Tucker Limon M.D. AG: [employer] Report ID: [id number] Reading Location: [id number] Procedure Note Tucker Limon MD - 10/31/2020 EXAM DESCRIPTION: HUMBLE BONE DENSITOMETRY AXIAL SKELETON REASON FOR STUDY: 74 y/o year old F with given history of screening. Radio Tester/Model: [employer]etera (S/N [id number]) CLINICAL INFORMATION: Current height: 5 FOOT 0 inches Maximum height: 5 FOOT 0 inches Weight: 135 pounds Risk factors: HYPERCALCEMIA, SECONDARY OSTEOPOROSIS, GREATER THAN 3 ALCOHOLIC BEVERAGES A DAY. COMPARISON: None available. FINDINGS: AP LUMBAR SPINE L1-L4: Total BMD is 1.045 g/cm2 T-score is -1.2 LEFT FOREARM: Total BMD is 0.866 g/cm2 T-score is -0.2 LEFT HIP: Total BMD is 0.939 g/cm2 T-score is -0.5 Femoral neck BMD is 0.872 g/cm2 T-score is -1.2 THIS IS AN ELECTRONICALLY VERIFIED FINAL REPORT 10/31/2020 10:59 AM - Electronically signed by Tucker Limon M.D. AG: [employer] Report ID: [id number] Reading Location: [place] [address] IMPRESSION: Low bone mass. Fracture risk assessment (FRAX): 10 year risk for a major osteoporotic fracture is 12.0 % 10 year risk for a hip fracture is 2.2 % The FRAX tool has not been validated in patients currently or previously treated with pharmacotherapy for osteoporosis. In such patients, clinical judgement must be exercised in interpreting FRAX scores as the fracture risk may be overestimated. REFERENCE: Bone mineral density: Normal (T-score above or = -1.0) Low bone mass (T-score between -1.0 and -2.5) replaces the previously used term osteopenia Osteoporosis (T-score = or below -2.5) Medical evaluation for secondary causes of low bone mineral density may be appropriate. FRAX is a World Health Organization validated fracture risk assessment tool that calculates a person's 10 year probability of a major osteoporosis related fracture and hip fracture. According to the National Osteoporosis Foundation guidelines, postmenopausal women and men age 50 or older with low bone mass and a 10 year probability of a major osteoporosis related fracture = or greater than 20% or a 10 year probability of a hip fracture = or greater than 3% should be considered for treatment. For further information, including treatment recommendations, please refer to the 2013 ISCD Official Positions (http://www.iscd.org) and the NOF's Clinician's Guide to Prevention and Treatment of Osteoporosis (http://www.nof.org/professionals/clinical-guidelines) Akira Reza MD IMG DEXA ORDERABLES Final R esult from Last 3 Months or Most Recently Relevant to Health Maintenance Insurance MEDICARE C AETNA Care Teams Snow Removal Supervisor Relationship Specialty Start Date End Date Akira Reza MD [address] [place] [place] [address] PCP - General Internal Medicine 05/09/15
--- OUTSIDE RECORDS SUMMARY | 2024-11-11 10:04 | XMS_ITS | Encounter Summary ---
Author Organization [facility] Address [address] [place] [address] Phone Care Team Providers Care Fish Agent Name Role Phone Akira Reza MD Primary Care Provider [phone] Reason for Visit * Reason Comments Medication Refill Encounter Details Date Type Department Care Team (Late st Contact Info) Description 07/25/2024 Refill [facility] - Internal Medicine - [place] [address] [facility] [place] [id number] Akira Reza MD [address] [place] [address] Medication Refill Social History Tobacco Use Types Packs/Day Years Used Date Smoking Tobacco: Former Cigarettes 0 05/10/1968 - 05/10/1978 Passive Smoke Exposure: Past Smokeless Tobacco: Never Alcohol Use Standard Drinks/Week Comments Yes 7 (1 standard drink = 0.6 oz pur e alcohol) [facility] Utilities Answer Date Recorded In the past 12 months has [employer], gas, oil, or water company threatened to [...] declined 05/17/2023 How often do you attend gnosticism or yazidism serv ices? Patient declined 05/17/2023 Do you belong to any clubs o r organizations such as gnosticism groups, unions, fraternal or athletic groups, or [...] Score - Questions 1-9 0 03/0 08/2024 [facility] - Occupational Stress [...] place to sleep or slept in a chcf (including now)? Patient declined 05/17/2023 Sexually Active [...] st Contact Info) Description 05/15/2025 11:40 AM TAX SERVICES SPECIALIST Office Visit [facility] [address] [place] [address] Akira Reza MD [address] [place] [address] documented as of this encounter Visit Diagnoses Not on filedocumented in this encounter Additional Health Concerns Assessment Noted Time PHQ-9 Depression Total Score: 0 07/12/19 25 1:24 PM TAX SERVICES SPECIALIST documented as of this encounter Care Teams Fish Agent Relationship Specialty Start Date End Date Akira Reza MD [address] [place] [address] PCP - General Internal Medicine 05/09/15 documented as of this encounter
--- OUTSIDE RECORDS SUMMARY | 2024-11-11 10:10 | XMS_ITS | Continuity of Care Document ---
Author Organization [facility] Address [address] [facility] [address] [place] [id number] Phone Care Team Providers Care Balcony Worker Name Role Phone Maryam Hazel OD Unavailable [...] every day 1 drop - Active Vitamin B-12 1,000 mcg tablet take 1 capsule by oral route every day 1 capsule - Active multivitamin capsule take 1 capsule by oral route every day - Active Vitamin D3 2,000 unit capsule take 1 tablet by oral route every day 1 tablet - Active Fish Oil 1,000 mg (120 mg-180 mg) capsule take 1 capsule by oral route every day 1 capsule - Active aspirin 81 mg tablet,delayed release take 1 tablet by oral route every day 81 MG - Active Levoxyl 50 mcg tablet take one tablet daily - Active pravastatin 40 mg tablet take [...] Diagnoses Date Provider Providers Copied on Encounter [facility] [employer] [facility], [address], [place], [place], [address], tel:[phone] [place] Professional dilated exam (chief complaint) Primary open-angle glaucoma, bilateral, moderate stagePresenc e of intraocular lensDry eye syndrome of bilateral lacrimal glands 5 Yasemin OD Maryam. [address], [address], [place], [place], [address], [place]. tel:[phone] Referring Provider: Abhinav Brewer, [facility]5 [facility], [place], [address]. tel:[phone] [facility] [employer] [facility], [address], [place], [place], [address], [place] tel:[phone] [place] No Information 4 Yasemin OD Maryam. [address], [address], [place], [place], [address], [place]. tel:[phone] Office/outpa tient Visit, [facility], [address], [place], [place], [address], tel:[phone] SEC [place] Professional glaucoma, pressure check (chief complaint) Primary open-angle glaucoma, bilateral, moderate stagePresenc e of intraocular lensDry eye syndrome of bilateral lacrimal glands 4 Yasemin OD Maryam. [facility] [address], [address], [place], [place], [address], [place]. tel:[phone] Referring Provider: Abhinav Brewer, [address] [facility], [place], [address]. tel:[phone] [employer] [facility], [facility], [facility] [employer] [facility] [address], [place], [place], [address], [place] [phone] SEC [place] Professional glaucoma, pressure check (chief complaint) Postoperativ e visit 4 Salvador OD Carrie. [address] [place], [place] [address], [address], [place], [place], [address], [place]. tel:[phone] Referring Provider: Abhinav Brewer, [address] [facility], [place], [address]. tel:[phone] [employer] [facility], [facility] [address], [place], [place], [address], [place] tel:[phone] [place] Professional Laser procedure (chief complaint) Primary open-angle glaucoma, bilateral, moderate stage 4 Adrianne Walsh. [facility] [address], [address], [place], [place], [address], [place]. tel:[phone] Referring Provider: Abhinav Brewer, [address] [facility], [place], [address]. tel:[phone] [employer] [facility], [facility] FilmL[address], [place], [place], [address], [place] tel:[phone] SEC [place] Professional 3-4 day IOP Check (chief complaint) Surgery follow-up examination 4 Yasemin OD Maryam. [facility] [address], [address], [place], [place], [address], [place]. tel:[phone] Referring Provider: Abhinav Brewer, [address] [facility], [place], [address]. tel:[phone] Office/outpa tient Visit, [facility] Eye [facility], [address] [place] [address] [address], [place], [place], [address], [place] tel:[phone] SEC [place] Professional Pt here for SLT evaluation to help control IOP (chief complaint) Primary open-angle glaucoma, right eye, moderate stagePrimary open-angle glaucoma, unspecified eye, moderate stage Apr-3 0-202 4 Adrianne Nico. [address] [place] [address], [address], [place], [place], [address], [place]. tel:[phone] Referring Provider: Abhinav Brewer, [address] [facility], [place], [address]. tel:[phone] Office/outpa tient Visit, [facility], [address] [place] [address] [address], [place], [place], [address], [place] tel:[phone] SEC [place]STE[place] Professional 6 [place] IOP Check (chief complaint) Primary open-angle glaucoma, bilateral, moderate stage Mar-2 2-202 4 Yasemin OD Maryam. [address] [place] [address], [address], [place], [place], [address], [place]. tel:[phone] Referring Provider: Abhinav Brewer, [address] [facility], [place], [address]. tel:[phone] Office/outpa tient Visit, [facility], [address] [place] [address] [address], [place], [place], [address], [place] tel:[phone] SEC [place] Professional 1 Mo IOP Check (chief complaint) Primary open-angle glaucoma, bilateral, moderate stagePresenc e of intraocular lens Sep-0 6-202 3 Yasemin OD Maryam. [address] [place] [address], [address], [place], [place], [address], [place]. tel:[phone] Referring Provider: Abhinav Brewer, [address] [facility], [place], [address]. tel:[phone] [facility], [address] [facility] [address], [place], [place], [address], [place] tel:[phone] [place] Professional Complete Exam (chief complaint) Primary open-angle glaucoma, bilateral, moderate stagePresenc e of intraocular lens 3 Yasemin OD Maryam. [address] [facility], [address], [place], [place], [address], [place]. tel:[phone] Referring Provider: Abhinav Brewer, [address] [facility], [place], [address]. tel:[phone] Office/outpa tient Visit, [facility], [address] [place] [address] [address], [place], [place], [address], [place] tel:[phone] [place] Professional glaucoma, pressure check (chief complaint) Primary open-angle glaucoma, bilateral, mild stagePresenc e of intraocular lensDry eye syndrome of bilateral lacrimal glands 3 Juan Manuel Benítez. [address] [employer], [address] [place], [place], [address], [place]. tel:[phone] Referring Provider: Abhinav Brewer, [address] [facility], [place], [address]. tel:[phone] [facility], [address] [place] [address] [address], [place], [place], [address], [place] tel:[phone] SEC [place] Professional Complete Exam (chief complaint) Primary open-angle glaucoma, bilateral, mild stagePresenc e of intraocular lensDrusen (degenerativ e) of macula, left eye 2 Juan Manuel Benítez. [address] [facility], [address], [place], [place], [address], [place]. tel:[phone] Referring Provider: Abhinav Brewer, [address] [facility], [place], [address]. tel:[phone] Office/outpa tient Visit, [facility] Eye [facility], [address] [place] [address] [address], [place], [place], [address], [place] tel:[phone] [place] Professional glaucoma, pressure check (chief complaint) Primary open-angle glaucoma, bilateral, mild stage 0- 2 Zambrano Jeyson. [address], [address], [place], [place], [address], [place]. tel:[phone] Referring Provider: Abhinav Brewer, [address] [facility], [place], [address]. tel:[phone] [place] [address], [address] [place] [address] [address], [place], [place], [address], [place] tel:[phone] [place] Professional 3 month Complete (chief complaint) Primary open-angle glaucoma, bilateral, mild stagePresenc e of intraocular lensVitreous degeneration , right eye 1 Juan Manuel Benítez. [address], [address], [place], [place], [address], [place]. tel:[phone] Referring Provider: Abhinav Brewer, [address] [facility], [place], [address]. tel:[phone] Office/outpa tient Visit, [facility] Eye [facility], [address] [place] [address] [address], [place], [place], [address], [place] tel:[phone] SEC [place] Professional Red eye (chief complaint) Primary open-angle glaucoma, bilateral, mild stageSubconj unctival hemorrhage of left eye 1 Zambrano Jeyson. [address], [address], [place], [place], [address], [place]. tel:[phone] Referring Provider: Abhinav Brewer, [address] [facility], [place], [address]. tel:[phone] Office/outpa tient Visit, [facility] Eye [facility], [address] [place] [address] [address], [place], [place], [address], [place] tel:[phone] [facility] Professional 6 month IOP check (chief complaint) Primary open-angle glaucoma, bilateral, mild stage Bhupinder-3 0-202 0 Juan Manuel Benítez. [address] [facility], [address], [place], [place], [address], [place]. tel:[phone] Referring Provider: Abhinav Brewer, [address] [facility], [place], [address]. tel:[phone] [facility], [address] [place] [address] [address], [place], [place], [address], [place] tel:[phone] [facility] Professional 6 mo Complete exam (chief complaint) Presence of intraocular lensPunctate keratitis, bilateralPri tong open-angle glaucoma, bilateral, mild stage Dec-1 3-201 9 Juan Manuel Benítez. [address] [facility], [address], [place], [place], [address], [place]. tel:[phone] Referring Provider: Abhinav Brewer, [address] [facility], [place], [address]. tel:[phone] Office/outpa tient Visit, [facility] Eye [facility], [address] [place] [address] [address], [place], [place], [address], [place] tel:[phone] [facility] Professional 6 mo IOP check (chief complaint) Primary open-angle glaucoma, bilateral, mild stage Bhupinder-0 7-201 9 Juan Manuel Benítez. [address] [facility], [address], [place], [place], [address], [place]. tel:[phone] Referring Provider: Abhinav Brewer, [address] [facility], [place], [address]. tel:[phone] [facility] Eye [facility], [address] [place] [address] [address], [place], [place], [address], [place] [phone] [facility] Professional No Information 9 Juan Manuel Benítez. [address] [facility], [address], [place], [place], [address], [place]. tel:[phone] [facility] Eye [facility], [address] [place] [address] [address], [place], [place], [address], [place] [phone] [facility] Professional Complete Exam (chief complaint) Primary open-angle glaucoma, bilateral, moderate stagePunctat e keratitis, bilateralPre sence of intraocular lens Apr- 8 Juan Manuel Benítez. [address] [facility], [address] [place], [place], [address], [place]. tel:[phone] Referring Provider: Abhinav Brewer, [address] [place], [address]. tel:[phone] Office/outpa tient Visit, [facility], [address] [place] [address] [address], [place], [place], [address], [place] tel:[phone] [facility] Professional glaucoma, pressure check (chief complaint) Primary open-angle glaucoma, bilateral, moderate stage 8 Juan Manuel Benítez. [address] [facility], [address], [place], [place], [address], [place]. tel:[phone] Referring Provider: Abhinav Brewer, [address] [place], [address]. tel:[phone] Office/outpa tient Visit, [facility], [address] [place] [address] [address], [place], [place], [address], [place] [phone] [facility] Professional Floating dark spot (chief complaint) Other vitreous opacities, right eyePresence of intraocular lens 7 Maria De Jesus Arora. [address] [facility], [address], [place], [place], [address], [place]. tel:[phone] Referring Provider: Abhinav Brewer, [address] [facility], [place], [address]. tel:[phone] [facility], [address], [place], [place], [address], [place] tel:[phone] SEC [place] Professional 2 wk YAG PC PO (chief complaint) Encntr for f/u exam aft trtmt for cond oth than malig neoplm 7 Juan Manuel Benítez. [address] [facility], [facility] A, [place], [place], [address], [place]. tel:[phone] Referring Provider: Abhinav Brewer, [address] [facility], [place], [address]. tel:[phone] [facility], [address], [place], [place], [address], [place] tel:[phone] SEC [place] Professional Laser procedure (chief complaint) Encntr for f/u exam aft trtmt for cond oth than malig neoplmOther secondary cataract, right eye 7 Juan Manuel Benítez. [address] [facility], [facility] A, [place], [place], [address], [place]. tel:[phone] Referring Provider: Abhinav Brewer, [address] [facility], [place], [address]. tel:[phone] [facility], [address], [place], [place], [address], [place] tel:[phone] SEC [place] Professional 6 month IOP check (chief complaint) Primary open-angle glaucoma, left eye, moderate stagePrimary open-angle glaucoma, right eye, moderate stageAfter-c ataract with vision obscured of both eyesPresence of intraocular lens Oct-3 7 Juan Manuel Benítez. [address], [address], [place], [place], [address], [place]. tel:[phone] Referring Provider: Abhinav Brewer, [address] [facility], [place], [address]. tel:[phone] Office/outpa tient Visit, [facility] Eye [facility], [address] [place] [address] [address], [place], [place], [address], [place] tel:[phone] SEC [place] Professional Complete Exam (chief complaint) Primary open-angle glaucoma, right eye, moderate stagePrimary open-angle glaucoma, left eye, moderate stagePresenc e of intraocular lens Apr-2 7 Wankum James. [address], [address], [place], [place], [address], [place]. tel:[phone] Referring Provider: Abhinav Brewer, [address] [facility], [place], [address]. tel:[phone] [facility] Eye [facility], [address] [place] [address] [address], [place], [place], [address], [place] tel:[phone] SEC [place] Professional No Information Apr-0 7 Wankum James. [address], [address], [place], [place], [address], [place]. tel:[phone] Office/outpa tient Visit, [facility] Eye [facility], [address], [place], [place], [address], [place] tel:[phone] SEC [place] Professional 3 month IOP check OU (chief complaint) No Information Oct-2 6 Wankum James. [address], [address] [place], [place], [address], [place]. tel:[phone] Referring Provider: Abhinav Brewer, [address] [facility] [place], [address]. tel:[phone] [facility], [address], [place], [place], [address], [place] tel:[phone] SEC [place]STE[place] Professional 2 week IOP PO IOL w/ ECP OD (chief complaint) No Information 6 Juan Manuel Benítez. [address], [address], [place], [place], [address], [place]. tel:[phone] Referring Provider: Abhinav Brewer, [address] [facility], [place], [address]. tel:[phone] [facility], [address] [place] [address] [address], [place], [place], [address], [place] [phone] SEC [place]STE[place] Professional 1 week IOP check OD (chief complaint) No Information 6 Juan Manuel Benítez. [address], [address], [place], [address], [place]. tel:[phone] Referring Provider: Abhinav Brewer, [address] [facility], [place], [address]. tel:[phone] [facility], [address] [place] [address] [address], [place], [place], [address], [place] [phone] SEC [place]STE[place]OS Professional 2 week post op (chief complaint) No Information 6 Juan Manuel Benítez. [address], [address], [place], [place], [address], [place]. tel:[phone] Referring Provider: Abhinav Brewer, [address] [facility], [place], [address]. tel:[phone] [facility] Eye [facility], [address] [place] [address] [address], [place], [place], [address], [place] tel:[phone] [place] Professional 1 day post op (chief complaint) No Information Bhupinder-0 1-201 6 Gio Ramirez. [address] [facility], [address], [place], [place], [address], [place]. tel:[phone] Referring Provider: Abhinav Brewer, [address] [facility], [place], [address]. tel:[phone] [facility] Eye [facility], [address] [place] [address] [address], [place], [place], [address], [place] tel:[phone] [facility] No Information - 6 Adrianne Walsh. [address], [address], [place], [place], [address], [place]. tel:[phone] Referring Provider: Abhinav Brewer, [address] [facility], [place], [address]. tel:[phone] [facility], [address], [place], [place], [address], [place] tel:[phone] SEC [place] Professional post op with IOP check (chief complaint) No Information - 6 Juan Manuel Benítez. [address] [facility], [address], [place], [place], [address], [place]. tel:[phone] Referring Provider: Abhinav Brewer, [address] [facility], [place], [address]. tel:[phone] [facility], [address], [place], [place], [address], [place] tel:[phone] SEC [place] Professional F/u exam, postop (chief complaint) No Information September-0 6-201 6 Juan Manuel Benítez. [address] [facility], [address], [place], [place], [address], [place]. tel:[phone] Referring Provider: Abhinav Brewer, [address] [facility], [place], [address]. tel:[phone] [facility] Eye [facility], [address] [place] [address] [address], [place], [place], [address], [place] tel:[phone] SEC [place] CASTELL[place] Professional F/u exam, postop (chief complaint) No Information 6 Juan Manuel Benítez. [address] [facility], [address], [place], [place], [address], [place]. tel:[phone] Referring Provider: Abhinav Brewer, [address] [place] [employer] [facility], [place], [address]. tel:[phone] [facility] Eye [facility], [address] [place] [address] [address], [place], [place], [address], [place] tel:[phone] [facility] [facility] No Information 6 Adrianne Walsh. [address] [place] [address] [employer], [address], [place], [place], [address], [place]. tel:[phone] Referring Provider: Abhinav Brewer, [address] [place] [employer] [facility], [place], [address]. tel:[phone] Office/outpa tient Visit, [facility] Eye [facility], [address] [place] [address] [address], [place], [place], [address], [place] tel:[phone] SEC [place] CASTELLANOS Professional cataract evaluation (chief complaint) No Information 6 Adrianne Walsh. [facility] [address] [employer], [address], [place], [place], [address], [place]. tel:[phone] Referring Provider: Abhinav Brewer, [address] [place] [employer] [facility], [place], [address]. tel:[phone] Office/outpa tient Visit, [facility] Eye [facility], [address] [place] [address] [address], [place], [place], [address], [place] tel:[phone] SEC [place]STE[place]OS Professional Glaucoma (chief complaint) No Information - 5 Wankum James. [address], [address] [place], [place], [address], [place]. tel:[phone] Referring Provider: Abhinav Brewer, [address] [facility], [place], [address]. tel:[phone] Office/outpa tient Visit, [facility], [address] [place] [address] [address], [place], [place], [address], [place] tel:[phone] [facility] Professional 6 month IOP check (chief complaint) No Information - 5 Wankum James. [address], [place], [place], [address], [place]. tel:[phone] Referring Provider: Abhinav Brewer, [address] [facility], [place], [address]. tel:[phone] Office/outpa tient Visit, [facility], [address] [place] [address] [address], [place], [place], [address], [place] tel:[phone] [facility] Professional Glaucoma, pressure check (chief complaint) No Information 3- 4 Wankum James. [address], [address] [place], [place], [address], [place]. tel:[phone] Referring Provider: Abhinav Brewer, [address] [facility], [place], [address]. tel:[phone] Office/outpa tient Visit, [facility], [address], [place], [place], [address], [place] tel:[phone] [facility] Professional 6 MO IOP CHECK / DFE / OCT (chief complaint) No Information Sep-0 4-201 4 Wankum James. [address], [address], [place], [address], [place]. tel:[phone] Referring Provider: Abhinav Brewer, [address] [facility], [place], [address]. tel:[phone] Office/outpa tient Visit, [facility] Eye [facility], [address], [place], [place], [address], [place] tel:[phone] [facility] Professional No Information 4 Wankum James. [address] [facility], [address], [place], [address], [place]. tel:[phone] Referring Provider: Abhinav Brewer, [address] [facility], [place], [address]. tel:[phone] [facility] Eye [facility], [address] [facility] [address], [place], [place], [address], [place] tel:[phone] [facility] Professional No Information 3 Wankum James. [address] [facility], [address], [place], [address], [place]. tel:[phone] Referring Provider: Abhinav Brewer, [address] [facility], [place], [address]. tel:[phone] Office/outpa tient Visit, [facility] Eye [facility], [id number] [place] [address] [address], [place], [place], [id number], [place] tel:[phone] [facility] No Information 2 Wankum James. [address] [facility], [address] [place], [address], [place]. tel:[phone] Referring Provider: Abhinav Brewer, [address] [facility], [place], [address]. tel:[phone] Office/outpa tient Visit, [facility], [address] [place] [address] [address], [place], [place], [id number], [place] tel:[phone] [facility] No Information 2 Wankum James. [address] [facility], [address] [place], [id number], [place]. tel:[phone] Referring Provider: Abhinav Brewer, [address] [facility], [place], [address]. tel:[phone] Office/outpa tient Visit, [facility], [address], [place], [place], [address], [place] tel:[phone] [facility] No Information 2 Wankum James. [address] [facility], [facility] [place], [address], [place]. tel:[phone] Referring Provider: Abhinav Brewer, [address] [facility], [place], [address]. tel:[phone] Office/outpa tient Visit, [facility], [address], [place], [place], [address], [place] [phone] [facility] No Information 1 Wankum James. [address] [facility], [facility] [place], [address], [place]. tel:[phone] Referring Provider: Abhinav Brewer, [address] [facility], [place], [address]. tel:[phone] [facility] Eye [facility], [address], [place], [place], [address], [place] tel:[phone] [facility] No Information Sep-0 1 Wankum James. [address] [facility], [facility] [place], [address], [place]. tel:[phone] Referring Provider: Abhinav Brewer, [address] [facility], [place], [address]. tel:[phone] Office/outpa tient Visit, [facility], [address], [place], [place], [address], [place] tel:[phone] [facility] No Information 1 Wankum James. [address], [address] [place], [address], [place]. tel:[phone] Referring Provider: Abhinav Brewer, [address] [facility], [place], [address]. tel:[phone] Office/outpa tient Visit, [facility], [address], [place], [place], [id number], [place] tel:[phone] [facility] No Information 1 Wankum James. [address], [address] [place], [address], [place]. tel:[phone] Referring Provider: Abhinav Brewer, [address] [facility], [place], [address]. tel:[phone] Office/outpa tient Visit, [facility], [address], [place], [place], [address], [place] tel:[phone] [facility] No Information 1 Wankum James. [address], [address] [place], [address], [place]. tel:[phone] Referring Provider: Abhinav Brewer, [address] [facility], [place], [address]. tel:[phone] Family History Family Member Type Diagnosis Age At Onset Mother Problem (finding) diabetes melli tus in first degree relative Payers Payer name Insurance type Covered democrat ID Authoriza tion(alma [employer] Md[employer] Gold Adv Prime CI [id number] Social History Type Description Quantity Date Captured [...] in 3 months or sooner with problems. Follow up - Return t o clinic in 2 weeks for IOP check Impression/Plan - 1 month s/p CE IOL+ECP OD. Patient last used Simbrinza about 36 hours ago. IOP has improved. Instructed patient to remain off all drops at this time. Recommend she return in 2 weeks for IOP check or sooner with problems. Follow up - 1 week PO / IOP chec k Impression/Plan - 2 week s/p IOL+ECP OD. [...] or sooner with problems. Follow up - as scheduled Impression/Plan - [...] proceed with OD CE on October 07. Follow up - 1 week IOP check OU Impression/Plan - 2 week s/p IOL OS. [...] operated eye 3 days prior to surgery Follow up - schedule cataract evaluation Impression/Plan - In traocular pressure well controlled, tolerating medications. Will continue with same regimen. Latanoprost QD OU. No refills needed at this time. No change in visual fernandes. Cataracts account for the patients complaints. Discussed all risks, benefits, procedures and recovery. Patient understands changing glasses will not improve vision. Patient desires to have surgery, will schedule cataract evaluation. PRIM OPEN ANGLE GLAU COMA - Educational [...] exam. Related to See impression: general plan early nsc - no tx needed Related to Cataract, Nuclear Sclerosis - Return in 6 months with James Powers M.D. 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
[2024-11-11 10:16] VITALS: BP 148/74; PULSE 80; RESP 16; TEMP 36.1; O2SAT 96
--- NOTE | 2024-11-11 10:31 | ED.LOWEXIN ---
HPI - Extremity Injury (Lower) General Chief Complaint: Extremity Injury, Lower Stated Complaint: Fall Injury/Left Ankle Patient presents to the [facility] with complaints of pain and swelling to left ankle that began yesterday after tripping on the stairs. Patient noted applying ice to the area and elevating this but today was still hurting when attempting to walk. Patient noted she does walk 2 miles every day and was unable to do this. Denies bruising redness, or tingling. Related Data Home Medications ?Medication ?Instructions ?Recorded ?Confirmed ?Last Taken ?Type levothyroxine 50 mcg tablet 50 mcg DAILY 03/24/22 03/24/22 Unknown History pravastatin 40 mg tablet 40 mg DAILY 03/24/22 03/24/22 Unknown History latanoprost 0.005 % eye drops drp 11/11/24 Unknown History levothyroxine 75 mcg tablet mcg 11/11/24 Unknown History Allergies Allergy/AdvReac Type Severity Reaction Status Date / Time No Known Allergies Allergy Verified 11/11/24 10:31 Review of Systems Constitutional: Constitutional: Reports as per HPI, Denies chills, Denies fatigue, Denies fever(s) and Denies weakness Eyes: Eyes: Reports no additional eye complaints ENT: Reports as per HPI Cardiovascular: Cardiovascular: Reports no additional cardiovascular complaints Respiratory: Respiratory: Reports no additional respiratory complaints Gastrointestinal: Gastrointestinal: Reports no additional gastrointestinal complaints Genitourinary: Genitourinary: Reports no additional female genitourinary complaints Musculoskeletal: Musculoskeletal: Reports as per HPI, Denies back pain, Denies myalgias, Reports arthralgias, Reports joint swelling and Denies muscle cramps Integumentary/Breasts: Skin/Breast: Reports as per HPI, Denies pruritus, Denies rash and Denies skin ulcer Neurologic: Reports as per HPI, Denies numbness and Denies weakness Psychiatric: Psychiatric: Reports no additional psychiatric complaints Endocrine: Endocrine: Reports no additional endocrine complaints Hematologic/Lymphatic: Hematologic/Lymphatic: Reports no additional hematologic/lymphatic complaints Allergic/Immunologic: Allergic/Immunologic: Reports no additional allergic/immunologic complaints Exam Const: General: healthy appearing and no acute distress Nutritional Appearance: well nourished Orientation/consciousness: patient oriented x3 Limitations: no limitations Resp: Effort & Inspection: normal respiratory effort Auscultation: clear to auscultation bilaterally Cardio: Rate: regular rate Rhythm: regular rhythm Skin: General skin exam: normal color Rashes: no rashes Wounds: no wounds Neuro: General: patient oriented x3 Speech: normal speech Gait exam (Neuro): gait abnormal ( Limited by pain) Extrem: Left lower extremity: ankle Details: abnormal to inspection, tenderness, swelling Details: laterally and abnormal ROM Details: pain with active ROM and pain with passive ROM; ROM abnormal, no warmth, no abrasions, no lacerations, no ecchymosis, no crepitus, no foreign bodies, no penetrating wound and achilles tendon exam normal Psych: Mental Status: mental status grossly normal Affect: normal affect Attitude: cooperative Course Course Level of Care: Express Care Visit Vital Signs Vital signs: Vital Signs Temperature 97.0 F L 11/11/24 10:16 Pulse Rate 80 11/11/24 10:16 Respiratory Rate 16 11/11/24 10:16 Blood Pressure 148/74 H 11/11/24 10:16 Pulse Oximetry 96 11/11/24 10:16 Oxygen Delivery Room Air 11/11/24 10:16 Temperature 97.0 F L 11/11/24 10:16 Pulse Rate 80 11/11/24 10:16 Respiratory Rate 16 11/11/24 10:16 Blood Pressure 148/74 H 11/11/24 10:16 Pulse Oximetry 96 11/11/24 10:16 Oxygen Delivery Room Air 11/11/24 10:16 MDM - Extremity Injury (Lower) MDM Narrative Medical decision making narrative: x-rays ordered of left ankle. Discharge instructions reviewed with patient, as well as provided in writing per nursing staff. The instructions also include specific and strict return/GO TO THE ER as well as f/u information. All questions have been answered, and the patient deny any further questions with discharge and discharge plan. Differential Diagnosis Differential diagnosis: Likely ankle sprain and strain, fracture of toe and ankle fracture Medical Records Attestation: I reviewed the patient's medical records. Imaging Data Attestation: I personally reviewed and interpreted this imaging study as follows: My impression: No fracture or dislocation Radiologist's impression: IMPRESSION: Anterolateral soft tissue swelling without acute displaced fracture. Reviewed, dictated and finalized at location A. Discharge Plan Discharge Clinical Impression: Mild sprain of left ankle Patient Disposition: Home Condition: Stable Instructions: Antibiotic Form, Ankle Sprain (ED), P.R.I.C.E. Treatment (ED) Additional Instructions: Xray showed no fracture. Minimize activities that aggravate the condition The RICE protocol. Follow the RICE protocol as soon as possible after your injury: Rest your ankle by not walking on it. Ice should be immediately applied to keep the swelling down. It can be used for 20 to 30 minutes, three or four times daily. Do not apply ice directly to your skin. Compression dressings, bandages or kaur-wraps will immobilize and support your injured ankle. Elevate your ankle above the level of your heart as often as possible during the first 48 hours. Medication: Nonsteroidal anti-inflammatory drugs (NSAIDs) such as ibuprofen and naproxen can help control pain and swelling. Because they improve function by both reducing swelling and controlling pain, they are a better option for mild sprains than narcotic pain medicines. Please schedule a follow-up visit with your personal physician for further evaluation and treatment within 1week OR If your symptoms persist, change or worsen significantly before you can contact your personal physician then please, without delay, go to the emergency department for further evaluation. Patient Language: Honduran Prescriptions: No Action pravastatin 40 mg tablet 40 mg DAILY levothyroxine 50 mcg tablet 50 mcg DAILY latanoprost 0.005 % drops levothyroxine 75 mcg tablet Follow-up/Referrals: Juaquin,Akira Whyte MD [Primary Care Provider] - Time of Disposition: 11:49
== END 2024-11-11 11:53 | disposition home or self-care (01) ==
PROVIDERS: Emergency Provider Nurse Practitioner Family; PCP Internal Medicine
DX: S93.402A Sprain of unspecified ligament of left ankle, initial encounter (principal); W10.9XXA Fall (on) (from) unspecified stairs and steps, initial encounter
CPT/HCPCS: 73610; 99213; G0463